=== PATIENT | male | born 1955 | race Caucasian/White ===

== ENCOUNTER → 2018-10-18 | Outpatient (CLI) | payer MEDICARE ==
[~2018-10-18] MED LIST: OXYCODONE; Z.0.CYMBALTA30 MG; Z.0.NEURONTIN300 MG; Z.0.TENORMIN50 MG
== END ==
LOC: US 11:53
PROVIDERS: ATTEND Urology
DX: N50.82 Scrotal pain (principal)

== ENCOUNTER 2019-05-13 15:44 | Inpatient (IN) | payer MEDICARE ==
[~2019-05-13] VITALS: Ht 182.9 cm; Wt 184.6 kg
[2019-05-13 16:42] LABS: BASOPHILS % 0.5 % (0.0-1.0); EOSINOPHILS # (AUTO) 0.1 (0.0-0.4); HEMATOCRIT 40.4 % (38.2-49.6); HEMOGLOBIN 12.4 g/dL (14.0-18.0); LYMPHOCYTES # (AUTO) 1.3 (1.0-3.2); LYMPHOCYTES % 21.3 % (18.0-39.1); MEAN CORPUSCULAR HEMOGLOBIN 25.8 pg (28-32); MEAN CORPUSCULAR HGB CONC 30.7 g/dL (31-35); MEAN CORPUSCULAR VOLUME 84.2 fL (81-99); MONOCYTES # (AUTO) 0.7 (0.2-0.8); MONOCYTES % 12.1 % (4.4-11.3); NEUTROPHILS # (AUTO) 3.9 (2.1-6.9); NEUTROPHILS % 64.8 % (38.7-80.0); PLATELET COUNT 156 x10e3/uL (140-360); RED CELL DISTRIBUTION WIDTH 22.3 % (11.7-14.4)
[2019-05-13 16:52] LABS: INR 1.23; PROTHROMBIN TIME 16.1 seconds (11.9-14.5)
[2019-05-13 16:53] LABS: PARTIAL THROMBOPLASTIN TIME 42.5 seconds (23.8-35.5)
[2019-05-13 16:54] LABS: BILIRUBIN,URINE MODERATE (NEGATIVE); CLARITY,URINE SL CLOUDY (CLEAR); COLOR,URINE YELLOW (YELLOW); KETONES,URINE NEGATIVE (NEGATIVE); LEUKOCYTE ESTERASE ,URINE NEGATIVE (NEGATIVE); NITRITE,URINE NEGATIVE (NEGATIVE); PROTEIN,URINE DIPSTICK 2+ (NEGATIVE)
[2019-05-13 16:58] LABS: AMORPHOUS SEDIMENT,URINE MODERATE (FEW); BACTERIA,URINE FEW /HPF
[2019-05-13 16:59] LABS: ALANINE AMINOTRANSFERASE 11 IU/L (0-55); ALBUMIN 2.8 g/dL (3.5-5.0); ALBUMIN/GLOBULIN RATIO 0.6 (0.8-2.0); ALKALINE PHOSPHATASE 247 IU/L (40-150); ANION GAP 12.7 mmol/L (8-16); BLOOD UREA NITROGEN 14 mg/dL (7-26); BUN/CREATININE RATIO 13 (6-25); CARBON DIOXIDE 31 mmol/L (22-29); CHLORIDE 97 mmol/L (98-107); CREATINE KINASE 56 IU/L (30-200); CREATININE, SERUM 1.05 mg/dL (0.72-1.25); EST GLOMERULAR FILTRATION RATE > 60 ML/MIN (60-); GLUCOSE 99 mg/dL (74-118); POTASSIUM 3.7 mmol/L (3.5-5.1); SODIUM 137 mmol/L (136-145)
--- NOTE | 2019-05-13 18:04 | Diagnostic Imaging Report ---
EXAM: CHEST SINGLE (PORTABLE) DATE: 05/13/2019 4:16 PM INDICATION: Chest pain COMPARISON: None IMPRESSION: There are diffusely increased bilateral interstitial and airspace opacities as well as prominence of central pulmonary vascular which can be seen in the setting of edema. There is no evidence for large focal consolidation, pneumothorax, or significant pleural effusion. The cardiomediastinal silhouette appears magnified by technique but otherwise unremarkable. No acute osseous abnormality is identified. Signed by: Dr. Antolin Rivera MD on 05/13/2019 6:01 PM
[2019-05-13] MEDS ORDERED: ALBUTEROL SULF 0.083% NEB SOLN 3 ML NEB NEB STA (18:42)
[2019-05-13] MEDS ORDERED: METHYLPREDNISOLONE SOD SUCC 125 MG/2ML VIAL IV STA (18:42)
[2019-05-13] MEDS ORDERED: IPRATROPIUM BROMIDE 0.02% 2.5 ML NEB NEB STA (18:42)
[2019-05-13] MEDS ORDERED: SODIUM CHLORIDE 0.9% 1000ML 1,000 ML IV STA (18:42)
[2019-05-13] MEDS ORDERED: FUROSEMIDE INJ 10 MG/ML 4 ML VIAL IV NR (18:45)
[2019-05-13] MEDS ORDERED: LEVOFLOXACIN 500MG/D5W 100ML 100 ML IV ONE ×2 (18:45→22:07)
[2019-05-13] MEDS ORDERED: IPRATROPIUM BROMIDE 0.02% 2.5 ML NEB NEB PRN (19:00)
[2019-05-13] MEDS ORDERED: SODIUM CHLORIDE FLUSH 10 ML SYR INJ PRN (19:00)
[2019-05-13] MEDS ORDERED: FAMOTIDINE 20 MG/2 ML VIAL IV NR (19:00)
[2019-05-13] MEDS ORDERED: DEXTROSE 50% SYRINGE 50 ML IV PRN (19:00)
[2019-05-13] MEDS ORDERED: ALBUTEROL SULF 0.083% NEB SOLN 3 ML NEB NEB PRN (19:00)
[2019-05-13 19:15] LABS: MAGNESIUM 1.7 MG/DL (1.3-2.1)
[2019-05-13] MEDS ORDERED: POTASSIUM CHLORIDE 20 MEQ TAB CR PO NR (19:30)
--- NOTE | 2019-05-13 20:01 | Diagnostic Imaging Report ---
EXAM: ABDOMEN-5 views DATE: 05/13/2019 7:08 PM INDICATION: Pain. Kidney stone. COMPARISON: None FINDINGS: LINES/TUBES: Dorsal column neurostimulator device partially visualized. Battery pack projected on the right hemipelvis. BOWEL PATTERN: No evidence for obstruction. SOFT TISSUES: No abnormal calcifications. No mass effect. LUNG BASES: Bibasilar atelectasis. BONES: No acute findings. IMPRESSION: Nonobstructive bowel gas pattern. Signed by: Dr. Karlie Kessler M.D. on 05/13/2019 7:58 PM
[2019-05-13] MEDS: INSULIN REGULAR, HUMAN 100 UNIT/1 ML 3ML VIAL SQ SCH (21:00)
--- NOTE | 2019-05-13 21:30 | NUR ---
RT AT BS TO ADMINISTER HHN [place]
[2019-05-13] MEDS ORDERED: SODIUM CHLORIDE 0.9% 1000ML 1,000 ML ONE (22:07)
[2019-05-13] MEDS ORDERED: METHYLPREDNISOLONE SOD SUCC 125 MG/2ML VIAL ONE (22:07)
[2019-05-13] MEDS: METHYLPREDNISOLONE SOD SUCC 40 MG/ML VIAL 1ML IV SCH (22:48)
[2019-05-13] MEDS ORDERED: FUROSEMIDE INJ 10 MG/ML 4 ML VIAL IV ONE (23:45)
--- NOTE | 2019-05-13 23:47 | NUR ---
RT CALLED FOR BIPAP
[2019-05-13] MEDS ORDERED: FUROSEMIDE INJ 10 MG/ML 4 ML VIAL ONE (23:50)
--- NOTE | 2019-05-14 | NUR ---
PT REFUSED BIPAP.
[2019-05-14] MEDS: NICOTINE 21 MG/EA PATCH TOP SCH ×2 (00:01→21:00)
[2019-05-14] MEDS: METHYLPREDNISOLONE SOD SUCC 40 MG/ML VIAL 1ML IV SCH ×3 (06:00→20:59)
[2019-05-14 06:27] LABS: BASOPHILS % 0.2 % (0.0-1.0); HEMATOCRIT 40.2 % (38.2-49.6); HEMOGLOBIN 12.7 g/dL (14.0-18.0); LYMPHOCYTES # (AUTO) 0.4 (1.0-3.2); LYMPHOCYTES % 9.7 % (18.0-39.1); MEAN CORPUSCULAR HEMOGLOBIN 26.5 pg (28-32); MEAN CORPUSCULAR HGB CONC 31.6 g/dL (31-35); MEAN CORPUSCULAR VOLUME 83.8 fL (81-99); MONOCYTES # (AUTO) 0.1 (0.2-0.8); MONOCYTES % 1.6 % (4.4-11.3); NEUTROPHILS # (AUTO) 3.9 (2.1-6.9); NEUTROPHILS % 88.1 % (38.7-80.0); PLATELET COUNT 164 x10e3/uL (140-360); RED CELL DISTRIBUTION WIDTH 22.1 % (11.7-14.4)
[2019-05-14 07:10] LABS: ALANINE AMINOTRANSFERASE 13 IU/L (0-55); ALBUMIN 2.9 g/dL (3.5-5.0); ALBUMIN/GLOBULIN RATIO 0.6 (0.8-2.0); ALKALINE PHOSPHATASE 247 IU/L (40-150); ANION GAP 15.6 mmol/L (8-16); BLOOD UREA NITROGEN 16 mg/dL (7-26); BUN/CREATININE RATIO 16 (6-25); CARBON DIOXIDE 29 mmol/L (22-29); CHLORIDE 95 mmol/L (98-107); CREATININE, SERUM 0.98 mg/dL (0.72-1.25); EST GLOMERULAR FILTRATION RATE > 60 ML/MIN (60-); GLUCOSE 126 mg/dL (74-118); POTASSIUM 3.6 mmol/L (3.5-5.1); SODIUM 136 mmol/L (136-145)
[2019-05-14] MEDS: INSULIN REGULAR, HUMAN 100 UNIT/1 ML 3ML VIAL SQ SCH ×4 (07:15→22:17)
--- NOTE | 2019-05-14 07:22 | NUR ---
assumed care of pt
[2019-05-14 07:37] LABS: CREATINE KINASE MB 2.2 ng/mL (0-5.0)
--- NOTE | 2019-05-14 08:46 | Diagnostic Imaging Report ---
Chest, 1 view, 05/14/2019. History: Shortness of breath. Comparison: 05/13/2019. Findings: The cardiomediastinal silhouette and pulmonary vasculature are prominent. There are diffuse bilateral pulmonary opacities, slightly increased compared to prior exam. There are no acute osseous or soft tissue abnormalities. Thoracic stimulator leads are again noted. Impression: Findings suggestive of CHF, slightly worsened. Signed by: Kush Vanegas on 05/14/2019 8:43 AM
[2019-05-14] MEDS ORDERED: FUROSEMIDE INJ 10 MG/ML 4 ML VIAL IV SCH ×2 (09:00→14:00)
[2019-05-14] MEDS: POTASSIUM CHLORIDE 20 MEQ TAB CR PO SCH ×2 (09:03→17:24)
[2019-05-14] MEDS: FUROSEMIDE INJ 10 MG/ML 4 ML VIAL IV SCH ×3 (09:05→21:00)
[2019-05-14] MEDS: FAMOTIDINE 20 MG/2 ML VIAL IV SCH ×2 (09:07→17:23)
--- NOTE | 2019-05-14 09:15 | NUR ---
pt is refusing to wear oxygen or bipap at this time. pt understands that he needs to wear it but refuses to keep it on, is at bedside and they are both aware that he needs to wear it.
--- NOTE | 2019-05-14 11:00 | Consultation ---
DATE OF CONSULTATION: 05/14/2019 Cardiology Consultation CONSULTING PHYSICIAN: Dheeraj Whyte MD, Interventional Cardiology. REASON FOR CONSULTATION: Worsening edema and shortness of breath. HISTORY OF PRESENT ILLNESS: Mr. Phoenix is 63-year-old man with history of morbid obesity, chronic lymphedema, smoker and COPD, and chronic diastolic heart failure, hypertension, and dyslipidemia, who presents with at least one week worth of gradually worsening lower extremity edema with inability to fully flex his knees as a result and gradually progressive worsening shortness of breath. He denies any chest discomfort. He feels better after initiation of diuretics in the hospital. He was not taking diuretics prior to hospital admission according to his account. REVIEW OF SYSTEMS: A 12-system review is negative except for as noted above. PAST MEDICAL HISTORY: As per HPI. SOCIAL HISTORY: Active smoking. Denies alcohol or drugs. FAMILY HISTORY: Noncontributory. PHYSICAL EXAMINATION: VITAL SIGNS: Temperature 97.2, heart rate 73, respiratory rate 15, blood pressure 131/65, and O2 saturation 96% on nasal cannula. GENERAL: In no acute distress, alert. NECK: JVD, distended. CHEST: Decreased breath sounds in bilateral bases. CARDIOVASCULAR: Regular rate and rhythm. Normal S1, S2. No S3 or S4. ABDOMEN: Morbidly obese with some edema, pitting. Bowel sounds positive. EXTREMITIES: With 3+ edema. Hyperkeratotic and hyperpigmented thickening of lower extremities. LABORATORY DATA: Chest x-ray with pulmonary vasculature and cardiac silhouette, and associated pulmonary infiltrates concerning for pulmonary edema. Sodium 136, potassium 3.6, chloride 95, bicarbonate 29, BUN 16, creatinine 0.98, glucose 126. White blood cells 4.4, hemoglobin 12.7, and platelets 164. INR 1.2. AST 22, ALT 13, alkaline phosphatase 247. BNP 1014. Troponin I serial x2 negative. ASSESSMENT AND PLAN: 1. A 63-year-old man presents with clcwb-oj-kmblvhp diastolic heart failure. 2. History of chronic obstructive pulmonary disease and smoking. 3. Hypertension. 4. Dyslipidemia. 5. Chronic lymphedema. 6. Morbid obesity with BMI of 47.4. RECOMMENDATIONS: 1. Continue IV diuretics, furosemide 40 mg IV every 8 hours with potassium supplementation as needed. 2. Monitor blood pressure for now, seems adequately controlled, currently. 3. Obtain echocardiogram. Thank you for the opportunity to participate in the care of Mr. Phoenix. We will follow with you. Smoking cessation counseling provided. MD PATRICIA Jhaveri/MODL /[id number]
--- NOTE | 2019-05-14 14:46 | NUR ---
Report to DAVID Seth
--- NOTE | 2019-05-14 14:49 | NUR ---
report received from kenneth in er awaiting for pt to arrive to floor
[2019-05-14 15:02] LABS: CREATINE KINASE MB 1.4 ng/mL (0-5.0)
--- NOTE | 2019-05-14 15:05 | NUR ---
received pt to floor aa0x3 at bedside pt is in no pain pt is on 3l sat 94% wheezing noted without auscultation no sob noted pt has severe edema to body noted on abd and lower legs (looks like lymphadema) severe dry skin with old scabs open to air pt has a left fa 20 sl bipap prn at bedside will continue to monitor pt closely side railsx2, bed wheels locked call light is within easy reach, instructed to call for assistance if needed
[2019-05-14 15:14] VITALS: BP 163/82
[2019-05-14] MEDS ORDERED: INFLUENZA VIRUS VAC SPLIT INJ 0.5 ML SYR IM SCH (15:24)
[2019-05-14] MEDS ORDERED: PNEUMOCOCCAL VACCINE POLYVALENT 23 MCG/0.5 ML VIAL IM SCH (15:24)
[2019-05-14 15:25] VITALS: BP 163/82
[2019-05-14 17:02] VITALS: BP 163/82
[2019-05-14] MEDS: ENOXAPARIN SOD INJ 40 MG/0.4 ML SYR SC SCH (17:24)
[2019-05-14 20:00] VITALS: BP 162/73
--- NOTE | 2019-05-14 20:00 | NUR ---
RECEIVED REPORT FROM AM NURSE, PATIENT IN THE RESTROOM AT THIS TIME.
--- NOTE | 2019-05-14 20:30 | NUR ---
PATIENT RESTING ON THE SIDE OF THE BED, NO DISTRESS NOTED. 02 PER NC IS OFF, INSTRUCTED PATIENT TO KEEP O2 ON WILL CONTINUE TO MONITOR. CALL LIGHT IN REACH.
[2019-05-14] MEDS ORDERED: METHYLPREDNISOLONE SOD SUCC 40 MG/ML VIAL 1ML IV SCH (22:00)
[2019-05-15] VITALS (9 sets, daily range): BP systolic 117–171; BP diastolic 59–78
--- NOTE | 2019-05-15 | NUR ---
CONTINUE RESTING, CALL LIGHT IN REACH.
[2019-05-15] MEDS: METHYLPREDNISOLONE SOD SUCC 40 MG/ML VIAL 1ML IV SCH ×2 (02:45→16:51)
--- NOTE | 2019-05-15 04:00 | NUR ---
DR. Reese BRASHER VISITED AND NEW ORDERS NOTED.
[2019-05-15] MEDS: FUROSEMIDE INJ 10 MG/ML 4 ML VIAL IV SCH ×3 (06:21→21:50)
--- NOTE | 2019-05-15 07:00 | NUR ---
received am report and rounds done. pt is alert sitting on the side of the bed, no s/s of distress. cane within reach, call light within reach and instructed pt to call RN for help
[2019-05-15] MEDS: INSULIN REGULAR, HUMAN 100 UNIT/1 ML 3ML VIAL SQ SCH ×4 (07:30→21:44)
[2019-05-15] MEDS: POTASSIUM CHLORIDE 20 MEQ TAB CR PO SCH ×2 (09:51→16:51)
[2019-05-15] MEDS: FAMOTIDINE 20 MG TAB PO SCH ×2 (09:51→16:51)
[2019-05-15 10:13] LABS: ANION GAP 14.8 mmol/L (8-16); BLOOD UREA NITROGEN 22 mg/dL (7-26); BUN/CREATININE RATIO 21 (6-25); CALCIUM 9.3 mg/dL (8.4-10.2); CARBON DIOXIDE 31 mmol/L (22-29); CHLORIDE 94 mmol/L (98-107); CREATININE, SERUM 1.07 mg/dL (0.72-1.25); EST GLOMERULAR FILTRATION RATE > 60 ML/MIN (60-); GLUCOSE 143 mg/dL (74-118); POTASSIUM 3.8 mmol/L (3.5-5.1); SODIUM 136 mmol/L (136-145)
--- NOTE | 2019-05-15 15:18 | Diagnostic Imaging Report ---
EXAM: US ABDOMEN COMPLETE DATE: 05/15/2019 7:00 AM INDICATION: Elevated liver enzymes COMPARISON: None TECHNIQUE: Transverse and longitudinal herr scale and color doppler sonographic images of the upper abdomen were obtained. FINDINGS: Technically challenging exam due to patient body habitus and extensive bowel gas. LIVER 22.7 cm in the right midclavicular line. Normal echogenicity of the liver with normal contour, no masses. SPLEEN 12.1 cm in maximum diameter. Normal echogenicity, no masses. GALLBLADDER Not visualized due to extensive bowel gas. BILE DUCTS No intrahepatic biliary ductal dilation. Common bile duct measures 4 mm. PANCREAS: Visualized portions are normal. RIGHT KIDNEY: 10.3 cm Echogenicity: Normal Collecting System: No hydronephrosis Stones: None Cyst/Mass: None LEFT KIDNEY: Not visualized due to extensive bowel gas. VESSELS: Aorta: Visualized portions are within normal size limits Inferior Vena Cava: Visualized portions are normal Main Portal Vein: 1.2 cm, normal size with hepatopetal flow. FREE FLUID: None IMPRESSION: Hepatomegaly. Challenging study due to patient body habitus and extensive bowel gas. Gallbladder, left kidney, and pancreas not well-visualized. Signed by: Amina Trejo MD on 05/15/2019 3:14 PM
[2019-05-15] MEDS ORDERED: DOXAZOSIN MESYLA2 MG PO (16:19)
[2019-05-15] MEDS ORDERED: PAROXETINE HCL20 MG PO (16:19)
[2019-05-15] MEDS ORDERED: PERCOCET 10-321 EACH PO (16:19)
[2019-05-15] MEDS ORDERED: ATENOLOL-CHLOR1 EAC1 PO (16:19)
[2019-05-15] MEDS: ENOXAPARIN SOD INJ 40 MG/0.4 ML SYR SC SCH (16:52)
[2019-05-15] MEDS: NICOTINE 21 MG/EA PATCH TOP SCH (16:52)
[2019-05-15] MEDS: ASPIRIN 81 MG CHEW TAB PO SCH (18:43)
--- NOTE | 2019-05-15 19:26 | NUR ---
RECEIVED REPORT FROM 7AM NURSE, PATIENT RESTING ON THE SIDE OF THE BED TALKING ON THE PHONE, CALL LIGHT IN REACH WILL CONTINUE TO MONITOR.
--- NOTE | 2019-05-15 21:39 | Progress Note ---
DATE: 05/15/2019 Cardiology Progress Note. SUBJECTIVE: Edema much better. Shortness of breath much improved. Continues to diurese. No new complaints. OBJECTIVE: VITAL SIGNS: Temperature 96.2, heart rate 54, respiratory rate 18, blood pressure 145/68, O2 saturation 92% on room air. GENERAL: In no acute distress. NECK: No JVD. CHEST: Clear to auscultation. CARDIOVASCULAR: Regular rate and rhythm. Normal S1, S2. Distant heart sounds. ABDOMEN: Morbidly obese, soft. EXTREMITIES: With chronic lymphedema. Hyperkeratotic changes, 2+ edema improving. CARDIOVASCULAR MEDICATION: Reviewed Lovenox 40 mg subcu daily, nicotine 21 mg daily, methylprednisolone 40 mg b.i.d. IV, KCl 20 mEq b.i.d., furosemide 40 mg IV every 8 hours. STUDIES: Reviewed glucose 141, creatinine 1.07, sodium 136, potassium 3.8 chloride 94, bicarbonate 31, BUN 22. Telemetry sinus rhythm. ASSESSMENT AND PLAN: 1. A 63-year-old man presents with acute on chronic diastolic heart failure, has history of COPD and active smoking. 2. Hypertension. 3. Dyslipidemia. 4. Chronic lymphedema. 5. Extreme morbid obesity with BMI of 47.4. RECOMMENDATIONS: 1. Continue diuretics IV and replete electrolytes as needed. Consider transition to oral diuretics tomorrow. 2. Preserved left ventricular systolic function noted on echocardiogram. 3. Venous ultrasound very limited given body habitus and edema with lymphedema changes, however no visualized deep vein thrombosis has chronic superficial thrombosis of right GSV. We will add aspirin to current regimen. Dheeraj Whyte MD AFV/MODL /[id number]
[2019-05-16] VITALS: BP 129/59
--- NOTE | 2019-05-16 | NUR ---
RESTING ON THE SIDE OF THE BED, NO DISTRESS NOTED, DRESSING REMAIN INTACT TO LOWER EXTREMITIES, BUT IS NONCOMPLIANT WITH SCD. INSTRUCTED ON THE USE FOR THE SCD'S PATIENT IS AWARE, WILL CONTINUE TO MONITOR.
--- NOTE | 2019-05-16 01:00 | NUR ---
PATIENT IS LYING DOWN IN BED, SCD'S APPLIED, NO COMPLAINS VOICED.
[2019-05-16 04:00] VITALS: BP 136/75
--- NOTE | 2019-05-16 05:00 | NUR ---
PATIENT CAME WALKING TO THE NURSES'S STATION WITH THE USE OF HIS WALKING CANE, REQUESTED FOR COFFEE, WENT BACK INTO HIS ROOM RESTING ON THE SIDE OF THE BED. SCD'S APPLIED, REMAIN ON TELEMETRY, 02 PER NC PLACED ON. WILL CONTINUE TO MONITOR.
[2019-05-16 06:33] LABS: ANION GAP 15.9 mmol/L (8-16); BLOOD UREA NITROGEN 32 mg/dL (7-26); BUN/CREATININE RATIO 27 (6-25); CALCIUM 9.4 mg/dL (8.4-10.2); CARBON DIOXIDE 32 mmol/L (22-29); CHLORIDE 96 mmol/L (98-107); CREATININE, SERUM 1.18 mg/dL (0.72-1.25); EST GLOMERULAR FILTRATION RATE > 60 ML/MIN (60-); GLUCOSE 123 mg/dL (74-118); POTASSIUM 3.9 mmol/L (3.5-5.1); SODIUM 140 mmol/L (136-145)
[2019-05-16] MEDS: FUROSEMIDE INJ 10 MG/ML 4 ML VIAL IV SCH (06:47)
--- NOTE | 2019-05-16 06:48 | NUR ---
PATIENT RESTING IN THE BED WITH HOB SLIGHTLY ELEVATED 02 PER NC REMAIN INTACT, DRESSING REMAIN INTACT, SCD REMAIN ON, REMAIN ON TELEMETRY, CALL LIGHT REMAIN IN REACH. WILL CONTINUE TO MONITOR.
--- NOTE | 2019-05-16 07:15 | NUR ---
REPORT GIVEN TO AM NURSE.
--- NOTE | 2019-05-16 07:28 | NUR ---
Received patient, a/ox3, rounds completed, no distress, continues on oxygen, some SOB, minimal pain but well managed, call light within reach. DPM consult and unclear if seen but will follow, no c/o pains at this time
[2019-05-16] MEDS: INSULIN REGULAR, HUMAN 100 UNIT/1 ML 3ML VIAL SQ SCH ×2 (07:30→11:30)
[2019-05-16] MEDS: FAMOTIDINE 20 MG TAB PO SCH (07:30)
[2019-05-16 08:14] VITALS: BP 182/84
[2019-05-16] MEDS: METHYLPREDNISOLONE SOD SUCC 40 MG/ML VIAL 1ML IV SCH (08:39)
[2019-05-16] MEDS: ASPIRIN 81 MG CHEW TAB PO SCH (08:39)
[2019-05-16] MEDS: POTASSIUM CHLORIDE 20 MEQ TAB CR PO SCH (08:40)
[2019-05-16] MEDS ORDERED: CARVEDILOL 3.125 MG TAB PO SCH (09:00)
--- NOTE | 2019-05-16 09:34 | NUR ---
Rounds by Dr. Galvan and cleared patient for discharge.
--- NOTE | 2019-05-16 09:40 | NUR ---
spoke to Dr. Quintanilla about O2 and home health, states not necessary, Eufemia HERNANDEZ states O2 on RA was ok this AM.
[2019-05-16 10:13] VITALS: BP 164/80
[2019-05-16] MEDS ORDERED: LASIX40 MG PO (11:26)
[2019-05-16] MEDS ORDERED: ALDACTONE25 MG PO (11:27)
[2019-05-16] MEDS ORDERED: COREG3.125 MG PO (11:28)
[2019-05-16] MEDS ORDERED: POTASSIUM CHLO20 ME2 PO (11:29)
--- NOTE | 2019-05-16 11:30 | NUR ---
IMM explained to patient, patient signed, copy to patient, copy to chart
[2019-05-16 11:44] VITALS: BP 186/88
[2019-05-16] MEDS ORDERED: PNEUMOCOCCAL VACCINE POLYVALENT 23 MCG/0.5 ML VIAL IM SCH (12:00)
[2019-05-16] MEDS ORDERED: INFLUENZA VIRUS VAC SPLIT INJ 0.5 ML SYR IM SCH (12:00)
--- NOTE | 2019-05-16 12:33 | Progress Note ---
DATE: 05/16/2019 Cardiology Progress Note SUBJECTIVE: No complaints. OBJECTIVE: VITAL SIGNS: Temperature 96.3, heart rate 66, respiratory rate 19, blood pressure 164/80, and O2 saturation 93% on room air. GENERAL: In no acute distress, alert. NECK: No JVD. CHEST: Clear to auscultation. ABDOMEN: Morbidly obese. Soft, nontender. CARDIOVASCULAR: Regular rate and rhythm. Normal S1, S2. Distant heart sounds. EXTREMITIES: With chronic lymphedema skin changes, edema better. CARDIOVASCULAR MEDICATIONS: Reviewed. Carvedilol 3.125 mg b.i.d., aspirin 81 mg daily, potassium chloride 20 mEq b.i.d., furosemide 40 mg IV every 8 hours, nicotine 21 mg daily. STUDIES: Reviewed. Sodium 140, potassium 3.9, chloride 96, bicarbonate 32, BUN 32, creatinine 1.1, glucose 123, calcium 9.4. On telemetry, sinus rhythm. ASSESSMENT AND PLAN: 1. A 63-year-old man presents with nrxmp-bs-pjnjeyq diastolic heart failure. 2. Chronic obstructive pulmonary disease. 3. Smoker. 4. Hypertension. 5. Dyslipidemia. 6. Chronic lymphedema. 7. Extreme morbid obesity with BMI of 47. RECOMMEND: 1. Transition IV to p.o. diuretics today. 2. The patient seems intravascular depleted by labs and has noticed significant improvement in symptoms. 3. He would benefit from weight loss, which has been advised. 4. Continue rest of cardiovascular medications. 5. Outpatient followup advised in 2 to 4 weeks post discharge. MD PATRICIA Jhaveri/BAYRON /[id number]
--- NOTE | 2019-05-16 12:40 | NUR ---
DISCHARGE SUMMARY PROVIDED, PRESCRIPTIONS PROVIDED, NO DISTRESS, O2SAT 94 ON RA, FLU AND PNA VACCINES GIVEN, IV LINE REMOVED, PATIENT A/OX4 AND STABLE
--- OUTSIDE RECORDS SUMMARY | 2019-05-16 13:39 | XMS REPORT ---
Author Author [facility] Address Unknown Phone Unavailable Care Team Providers Care Food And Beverage Assistant Name Role Phone DIANE TERRELL Unavailable Unavailable Problems This patient has no known problems. Allergies, Adverse Reactions, Alerts This patient has no known allergies or adverse reactions. Medications This patient has no known medications. Results Test Description Test Time Test Comments Text Results Atomic Results Result Comments US ABDOMEN COMPLETE 2019-05-15 15:11:00 [place] [id number] Patient Name: PAULA GALLAGHER MR #: [id number] : 1955 Age/Sex: 63/M Req #: [id number] [facility] Physician: DIANE TERRELL MD Ordered by: MEGAN BRASHER MD Report #: [id number] Location: MED/SURG Room/Bed: [facility]– [place] Procedure: [id number] US/US ABDOMEN COMPLETE Exam Date: 05/15/19 Exam Time: 1400 REPORT STATUS: Signed EXAM: US ABDOMEN COMPLETE DATE: 05/15/2019 7:00 AM INDICATION: Elevated liver enzymes COMPARISON: None TECHNIQUE: Transverse and longitudinal herr scale and color doppler sonographic images of the upper abdomen were obtained. FINDINGS: Technically challenging exam due to patient body habitus and extensive bowel gas. LIVER 22.7 cm in the right midclavicular line. Normal echogenicity of the liver with normal contour, no masses. SPLEEN 12.1 cm in maximum diameter. Normal echogenicity, no masses. GALLBLADDER Not visualized due to extensive bowel gas. BILE DUCTS No intrahepatic biliary ductal dilation. Common bile duct measures 4 mm. PANCREAS: Visualized portions are normal. RIGHT KIDNEY: 10.3 cm Echogenicity: Normal Collecting System: No hydronephrosis Stones: None Cyst/Mass: None LEFT KIDNEY: Not visualized due to extensive bowel gas. VESSELS: Aorta: Visualized portions are within normal size limits Inferior Vena Cava: Visualized portions are normal Main Portal Vein: 1.2 cm, normal size with hepatopetal flow. FREE FLUID: None IMPRESSION: Hepatomegaly. Challenging study due to patient body habitus and extensive bowel gas. Gallbladder, left kidney, and pancreas not well-visualized. Signed by: Jhony Peraza MD on 05/15/2019 3:14 PM Dictated By: JHONY PERAZA MD 13 Transcribed By: ALEKSEY on 05/15/191513 COPY TO: MEGAN BRASHER MD CHEST SINGLE (PORTABLE) 2019-05-14 08:41:00 [place] [address] Patient Name: PAULA GALLAGHER MR #: [id number] : 1955 Age/Sex: 63/M Req #: [id number] Adm Physician: DIANE TERRELL MD Ordered by: SHANE GUPTA MD, MD Report #: [id number] Location: [facility] Room/Bed: [place] [address] Procedure: [id number] DX/CHEST SINGLE (PORTABLE) Exam Date: 05/14/19 Exam Time: 0610 REPORT STATUS: Signed Chest, 1 view, 05/14/2019. History: Shortness of breath. Comparison: 05/13/2019. Findings: The cardiomediastinal silhouette and pulmonary vasculature are prominent. There are diffuse bilateral pulmonary opacities, slightly increased compared to prior exam. There are no acute osseous or soft tissue abnormalities. Thoracic stimulator leads are again noted. Impression: Findings suggestive of CHF, slightly worsened. Signed by: Paula Vanegas on 05/14/2019 8:43 AM Dictated By: PAULA VANEGAS MD 2 Transcribed By: ALEKSEY on 05/14/19842 COPY TO: SHANE GUPTA ABDOMEN-1VIEW (KUB) 2019-05-13 19:56:00 [place] [address] Patient Name: PAULA GALLAGHER MR #: [id number] : 1955 Age/Sex: 63/M Req #: [id number] Adm Physician: Ordered by: SHANE GUPTA MD, MD Report #: [id number] Location: ER Room/Bed: Procedure: [id number] DX/ABDOMEN-1VIEW (KUB) Exam Date: 05/13/19 Exam Time: 1910 REPORT STATUS: Signed EXAM: ABDOMEN-5 views DATE: 05/13/2019 7:08 PM INDICATION: Pain. Kidney stone. COMPARISON: None FINDINGS: LINES/TUBES: Dorsal column neurostimulator device partially visualized. Battery pack projected on the right hemipelvis. BOWEL PATTERN: No evidence for obstruction. SOFT TISSUES: No abnormal calcifications. No mass effect. LUNG BASES: Bibasilar atelectasis. BONES: No acute findings. IMPRESSION: Nonobstructive bowel gas pattern. Signed by: Dr. Karlie Delgado M.D. on 05/13/2019 7:58 PM Dictated By: EMERITA DELGADO MD, MD 57 Transcribed By: ALEKSEY on 05/13/191957 COPY TO: SHANE GUPTA CHEST SINGLE (PORTABLE) 2019-05-13 18:00:00 [place] [address] Patient Name: PAULA GALLAGHER MR #: [id number] : 1955 Age/Sex: 63/M Req #: [id number] Adm Physician: Ordered by: SHANE GUPTA MD, MD Report #: [id number] Location: ER Room/Bed: Procedure: [id number] DX/CHEST SINGLE (PORTABLE) Exam Date: Exam Time: REPORT STATUS: Signed EXAM: CHEST SINGLE (PORTABLE) DATE: 05/13/2019 4:16 PM INDICATION: Chest pain COMPARISON: None IMPRESSION: There are diffusely increased bilateral interstitial and airspace opacities as well as prominence of central pulmonary vascular which can be seen in the setting of edema. There is no evidence for large focal consolidation, pneumothorax, or significant pleural effusion. The cardiomediastinal silhouette appears magnified by technique but otherwise unremarkable. No acute osseous abnormality is identified. Signed by: Dr. Antolin Rivera MD on 05/13/2019 6:01 PM Dictated By: ANTOLIN RIVERA MD 00 Transcribed By: ALEKSEY on 05/13/191800 COPY TO: SHANE GUPTA
--- OUTSIDE RECORDS SUMMARY | 2019-05-16 13:39 | XMS REPORT | Encounter Summary ---
Author Organization Unknown Address [address] [place] [id number] Phone [phone] Care Team Providers Care Reliability Specialist Name Role Phone Dr. Sukh Mays 3 [phone] David Martinez MD 3 [phone] Guevara Lanier DO 113 [phone] [facility] 124 [phone] Reason for Visit Type 2 diabetes mellitus; Hypertensive disorder; diabetic foot exam Instructions 1. Hypertensive disorder atenolol 50 mg-chlorthalidone 25 mg tablet 2. Type 2 diabetes mellitus HbA1c (hemoglobin A1c), blood CMP, serum or plasma lipid panel, serum 3. Lymphedema of lower extremity 4. Morbid obesity Discussion Note await lab,may need to reconsider metformin/statin Patient educational handouts: No information available. Plan of Care Patient Instructions continue all meds /<wgt/>exercise ,d/c smoking,f/u vein clinic Reminders Provider Appointments None recorded. Lab HbA1C (Hemoglobin a1C), Blood 01/06/2019 [facility] CMP, Serum or Plasma 01/06/2019 [facility] Lipid Panel, Serum 01/06/2019 [facility] Referral None recorded. Procedures None recorded. Surgeries None recorded. Imaging None recorded. Medications Name Start Date atenolol 50 mg-chlorthalidone 25 mg tablet TAKE 1 TABLET BY MOUTH ONCE A DAY DUE doxazosin 4 mg tablet Take 1 tablet by oral route for 30 days. oxycodone-acetaminophen 10 mg-325 mg tablet paroxetine 30 mg tablet Take 1 tablet every day by oral route. Medications Administered None recorded. Vitals Height Weight BMI Blood Pressure 6 ft 399.4 lbs 54.2 kg/m2 140/72 mm[Hg] Lab Results None recorded. Allergies Code Code System Name Reaction Severity Status Onset NKDA Problems Name Status Onset Date Source Nicotine Dependence Active 01/24/2016 Depressive Disorder Active 08/02/2016 Type 2 Diabetes Mellitus Active 05/29/2018 Morbid Obesity Active 05/29/2018 Opioid Dependence Active 05/29/2018 Peripheral Vascular Disease Active 05/29/2018 Chronic Obstructive Lung Disease Active 05/29/2018 Anxiety Active Hypertensive Disorder Active Procedures Date Name Performed by 10/08/2009 Colonoscopy with Biopsy Information not available 05/28/1998 Neurosurgery (Brain) Information not available 05/28/1986 Laminotomy Single Lumbar Information not available Vaccine List Vaccine Type influenza, injectable, quadrivalent 03/04/2015 05/17/2016 influenza, injectable, quadrivalent, preservative free 05/24/20180.5 mL influenza, seasonal, injectable 05/17/20160.5 mL Tdap 01/24/20160.5 mL Social History Tobacco Smoking Status Heavy Tobacco Smoker (1 1/2 PPD) Past Encounters 01/06/2019 Hypertensive Disorder; Type 2 Diabetes Mellitus; Lymphedema of Lower Extremity; Morbid Obesity Sukh Mays MD: [id number] [place] [address], Ph. History of Present Illness Note:f/u htn-compliant with meds not exercise diet,continues to smoke 1.5 ppd< div> dm-no current tx,refused metformin/statin rx<div>under care vein clinic -vv's/lymphedema</div></div><div> dispatch supervisor -bl fore leg lesions</div> Review of Systems:ROS as noted in the HPI Review of Systems None recorded. Physical Exam Cardiology Exam Reported By: Patient Constitutional: General Appearance: well-developed, appears stated age, obese. Level of Distress: comfortable Psychiatric: Mental Status: alert, normal affect. Orientation: oriented to time, place, and person. Insight: good judgment Eyes: Lids and Conjunctivae: non-injected, anicteric, no discharge, no pallor, no arcus senilis, no xanthelasma. Pupils: PERRLA Neck: Neck: supple, trachea midline, no masses, FROM. Carotid Arteries: bilateral normal upstroke, no bruits, no thrills. Cervical Lymph Nodes: non tender, not enlarged. Thyroid: not enlarged, non tender, no nodules Lungs: Respiratory Effort: unlabored. Chest Exam: normal curvature, no thoracic deformity, no chest wall tenderness. Percussion: resonant. Auscultation: clear, no wheezing, no rales, no rhonchi Cardiovascular: Precordial Exam: non displaced focal PMI, no heaves, no precordial thrills. Rate And Rhythm: regular. Heart Sounds: normal S1, physiologically split S2, no rub, no gallop, no click. Systolic Murmur: not heard. Diastolic Murmur: not heard. Extremities: no cyanosis, no peripheral signs of emboli, ankle edema bilateral, , +, 2 bilateral, , +, 2 bilateral, , +, 2 bilateral, , +, 2 Skin: Inspection and Palpation: warm and dry, rash; bl fore leg lesions. Nails: no clubbing
--- OUTSIDE RECORDS SUMMARY | 2019-05-16 13:40 | XMS REPORT | Encounter Summary ---
Author Organization Unknown Address [address] [place] [address] Phone [phone] Care Team Providers Care Director University Name Role Phone Dr. Sukh Mays 3 [phone] David Martinez MD 3 [phone] Guevara Lanier DO 113 [phone] [facility] 124 [phone] Reason for Visit lab follow-up Instructions 1. Body mass index 40+ - severely obese body mass index: care instructions learning about healthy weight 2. Severe obesity 3. Type 2 diabetes mellitus metformin 500 mg tablet 4. Hypocalcemia PTH (parathyroid hormone), intact, serum or plasma CMP, serum or plasma vitamin D, 25-hydroxy, total, serum Discussion Note await lab r/o hypoparathyroidism/consider start statin next ov Plan of Care Patient Instructions start metformin 500 mgs bid/rtc 1 month Reminders Provider Appointments Return to Office on or around 02/10/2019 Sukh Mays MD Lab PTH (Parathyroid Hormone), Intact, Serum or Plasma 01/10/2019 [facility] CMP, Serum or Plasma 01/10/2019 [facility] Vitamin D, 25-Hydroxy, Total, Serum 01/10/2019 [facility] Referral None recorded. Procedures None recorded. Surgeries None recorded. Imaging None recorded. Medications Name Start Date atenolol 50 mg-chlorthalidone 25 mg tablet TAKE 1 TABLET BY MOUTH ONCE A DAY DUE doxazosin 4 mg tablet Take 1 tablet by oral route for 30 days. metformin 500 mg tablet Take 1 tablet twice a day by oral route. oxycodone-acetaminophen 10 mg-325 mg tablet paroxetine 30 mg tablet Take 1 tablet every day by oral route. Medications Administered None recorded. Vitals Height Weight BMI Blood Pressure 6 ft 402 lbs 54.5 kg/m2 (1) 196/92 mm[Hg] (2) 190/90 mm[Hg] Lab Results Date Name Specimen Result Interpretation Description Value Range Status Address 01/06/2019 CMP, Serum or Plasma Alt 20 U/L 0-55 U/L Final [facility]: [address], [place] Ast 24 U/L 5-34 U/L [facility]: [address] [place] Bun 14.1 mg/dL 8.4-25.0 mg/dL [facility]: [address], [place] High Alk Phos 228 unit/L 40-150 unit/L [facility]: [address] [place] High Glucose 117 mg/dL 70-99 mg/dL [facility]: [address], [place] Low Albumin 3.2 g/dL 3.4-5.1 g/dL [facility]: [address] [place] Creatinine 0.99 mg/dL 0.72-1.25 mg/dL [facility]: [address] [place] [address] eGFR Non- >60 mL/min/1.73m2 [facility] [address] [facility] Total Bilirubin 1.2 mg/dL 0.2-1.2 mg/dL [facility] [address] [facility] eGFR - >60 mL/min/1.73m2 [facility]: [address], [place] Sodium 139 mEq/L 135-145 mEq/L [facility]: [address] [facility], [place] Potassium 3.6 mEq/L 3.5-5.1 mEq/L [facility]: [address], [place] Chloride 99 mmol/L 98-110 mmol/L [facility] [address] [facility] Total Protein 7.5 g/dL 6.1-8.2 g/dL [facility]: [address], [place] Low Calcium 8.8 mg/dL 9.0-10.2 mg/dL [facility]: [address], [place] Co2 28.5 mmol/L 20.0-32.0 mmol/L [facility]: [address] [place] [address], [place] Anion Gap 12 calc Final [facility]: [address] [place] [address], [place] 01/06/2019 Lipid Panel, Serum Low Hdl 30 mg/dL Final [facility]: [address] [place] [address], [place] Triglyceride 102 mg/dL 0-150 mg/dL [facility]: [address] VLDL (Calculated) 20 mg/dL [facility]: [address] cholesterol/HDL Ratio 3.4 mg/dL [facility]: [address] [place] [address], [place] non-HDL Cholesterol (Calculated) 73 mg/dL 0-160 mg/dL [facility]: [address] [place] [address], [place] Cholesterol 103 mg/dL 0-200 mg/dL [facility]: [address] LDL (Calculated) 53 mg/dL 0-130 mg/dL [facility]: [address] [place] [address], [place] 01/06/2019 HbA1C (Hemoglobin a1C), Blood High A1C W/eag 6.9 % 1.0-5.7 % [facility]: [address] Average Blood Glucose 151 mg/dL [facility]: [address] [place] [address], [place] Allergies Code Code System Name Reaction Severity [...] Tobacco Smoking Status Heavy Tobacco Smoker (1 2 PPD) Past Encounters 01/10/2019 Body Mass Index 40+ - Severely Obese; Severe Obesity; Type 2 Diabetes Mellitus; Hypocalcemia Sukh Mays MD: [address] [place] [address], Ph. 01/06/2019 Hypertensive Disorder; Type 2 Diabetes Mellitus; Lymphedema of Lower Extremity; Morbid Obesity Sukh Mays MD: [address] [place] [address], Ph. History of Present Illness Note:f/u lab -significantly diabetic range hba1c 6.6/<ca 8.8/>alk phos 228 Review of Systems:ROS as noted in the [...]
--- NOTE | 2019-05-16 13:54 | Discharge Summary ---
CONSULTANTS: 1. Dr. Juan Manuel Edward. 2. Dr. Louis. 3. Dr. Dheeraj Whyte. FINAL DIAGNOSES: 1. [id number]-[id number] diastolic dysfunction, congestive heart failure, severely, much improved. 2. Severe bilateral lower extremity lymphedema, much improved. 3. Baseline abdominal ascites, most likely secondary to liver cirrhosis, but unable to diagnose due to the patient's BMI of [address] scan and also abdominal ultrasound is difficult due to body habitus. SUMMARY: The patient is a 63-year-old male, who came in with severely edematous lower extremity lymphedema. The patient is noncompliant. He had lymphedema clinic visit multiple months ago and did not follow up. He was also increasing shortness of breath, required oxygen support. The patient was with acute hypoxia. He had baseline BMI of 55. The patient is morbidly obese. He is ambulatory with a cane. He received aggressive diuresis, which he improved significantly. His echocardiogram showed ejection fraction is grossly normal. The patient also has severely unkempt lower extremity with skin building up with lymphedema. Discussed with the patient at length regarding care of the lower extremity. The patient will discharge home. He will discontinue his atenolol and HCTZ. Continue with his other home medication including pain management. New prescription is Lasix 40 mg twice a day, Aldactone 25 mg twice a day, Coreg 3.125 mg twice a day, and potassium 10 mEq daily. The patient needs to follow up with his family physician for repeat lab workup. The patient needs to go to the lymphedema clinic for treatment. Of note, grossly the lower extremity venous ultrasound did not reveal any DVT. The patient is ambulatory. His lower extremity is significantly improved. Pain has improved as well. The patient is going home today. All instructions given to the patient. MD GI Green/MODL /[id number]
[2019-05-16] MEDS ORDERED: TRIAMCINOLONE ACET 0.1% CREAM 15 GM TUBE TOP SCH (17:00)
--- NOTE | 2019-05-16 17:04 | Consultation ---
DATE OF CONSULTATION: 05/15/2019 Wound Consultation HISTORY OF PRESENT ILLNESS: A 63-year-old male patient, morbidly obese with chronic smoking, has chronic lymphedema to both lower extremities, admitted with weakness, bleeding from the leg after scratching both lower extremities. Wound consult was called. The patient started to have worsening edema and also shortness of breath. PAST MEDICAL HISTORY: Hyperlipidemia, hypertension, chronic lymphedema, COPD, morbid obesity, nicotine dependency. PERSONAL HISTORY: Smokes from childhood. Continues to smoke. PHYSICAL EXAMINATION: VITAL SIGNS: Blood pressure 130/65, pulse of 70. HEENT: Normal. NECK: No JVD. LUNGS: Bilateral air entry diminished. CVS: Normal. ABDOMEN: Protuberant. Abdominal wall edema present. EXTREMITIES: Lower extremities 3+ edema present, lymphedema, lymphocele with hyperkeratotic skin and chronic stasis pigmentation noted in both the lower extremities with excoriation and scratch martin. ASSESSMENT: Chronic bilateral lymphedema, morbid obesity, chronic obstructive pulmonary disease. PLAN: Discussed with patient at length about losing weight, smoking cessation counseling, have lymphedema pump at home. Explained to him about the medical condition that he has, which he is not aware and unable to understand the seriousness of the smoking and the disease that he has. Talked to him at length to be serious about his health. Otherwise, he would end up in custodial soon. MD EVERARDO Leahy/BAYRON /[id number]
== END 2019-05-16 12:25 | disposition home or self-care (01) | DRG 292 ==
LOC: ER 15:44 → ERHOLD 20:24 → MED/SURG 05-14 15:08
PROVIDERS: ADMIT Internal Medicine; ATTEND Internal Medicine
DX: I11.0 Hypertensive heart disease with heart failure (principal); R18.8 Other ascites; J44.1 Chronic obstructive pulmonary disease with (acute) exacerbation; Z68.42 Body mass index [BMI] 45.0-49.9, adult; I50.33 Acute on chronic diastolic (congestive) heart failure; E78.5 Hyperlipidemia, unspecified; I89.0 Lymphedema, not elsewhere classified; K74.60 Unspecified cirrhosis of liver; E66.01 Morbid (severe) obesity due to excess calories; F17.200 Nicotine dependence, unspecified, uncomplicated; I89.8 Other specified noninfective disorders of lymphatic vessels and lymph nodes; L81.4 Other melanin hyperpigmentation; M19.90 Unspecified osteoarthritis, unspecified site; R09.02 Hypoxemia
CPT/HCPCS: 36415; 71045; 74018; 76700; 80048; 80053; 81001; 82140; 82550; 82553; 82948; 83690; 83735; 83880; 84484; 85025; 85610; 85730; 87086; 90732; 93005; 93306; 93970; 94644; 94660; 96372; 99285; J1650; J1817; J1940; J1956; J2920; J2930; J7030

== ENCOUNTER 2020-09-22 22:23 | Inpatient (IN) | payer MEDICARE ==
[~2020-09-22] VITALS: Ht 365.8 cm; Wt 169.6 kg
[~2020-09-22 22:23] MED LIST changes: +ALDACTONE25 MG PO; +ATENOLOL-CHLOR1 EAC1 PO; +COREG3.125 MG PO; +DOXAZOSIN MESYLA2 MG PO; +LASIX40 MG PO; +PAROXETINE HCL20 MG PO; +PERCOCET 10-321 EACH PO; +POTASSIUM CHLO20 ME2 PO
[2020-09-22 23:18] LABS: BASOPHILS % 0.5 % (0.0-1.0); EOSINOPHILS # (AUTO) 0.2 (0.0-0.4); EOSINOPHILS % 2.2 % (0.0-6.0); HEMATOCRIT 48.1 % (38.2-49.6); HEMOGLOBIN 15.6 g/dL (14.0-18.0); LYMPHOCYTES # (AUTO) 1.5 (1.0-3.2); LYMPHOCYTES % 17.4 % (18.0-39.1); MEAN CORPUSCULAR HEMOGLOBIN 30.2 pg (28-32); MEAN CORPUSCULAR HGB CONC 32.4 g/dL (31-35); MEAN CORPUSCULAR VOLUME 93.2 fL (81-99); MONOCYTES # (AUTO) 0.4 (0.2-0.8); MONOCYTES % 5.1 % (4.4-11.3); NEUTROPHILS # (AUTO) 6.5 (2.1-6.9); NEUTROPHILS % 74.5 % (38.7-80.0); PLATELET COUNT 179 x10e3/uL (140-360); RED BLOOD COUNT 5.16 x10e6/uL (4.3-5.7); RED CELL DISTRIBUTION WIDTH 15.9 % (11.7-14.4)
[2020-09-22 23:29] LABS: INR 0.82; PROTHROMBIN TIME 11.9 seconds (11.9-14.5)
[2020-09-22 23:30] LABS: PARTIAL THROMBOPLASTIN TIME 32.6 seconds (23.8-35.5)
[2020-09-22 23:37] LABS: ALBUMIN 3.6 g/dL (3.5-5.0); ALBUMIN/GLOBULIN RATIO 0.8 (0.8-2.0); ANION GAP 17.4 mmol/L (8-16); CALCIUM 9.2 mg/dL (8.4-10.2); CREATININE, SERUM 1.56 mg/dL (0.72-1.25); POTASSIUM 4.4 mmol/L (3.5-5.1)
[2020-09-22 23:50] LABS: CLARITY,URINE TURBID (CLEAR); COLOR,URINE RED (YELLOW)
[2020-09-22 23:51] LABS: KETONES,URINE NEGATIVE (NEGATIVE); LEUKOCYTE ESTERASE ,URINE NEGATIVE (NEGATIVE); NITRITE,URINE NEGATIVE (NEGATIVE); PROTEIN,URINE DIPSTICK 1+ (NEGATIVE); URINE UROBILINOGEN 0.2 mg/dL (0.2 - 1)
[2020-09-22 23:55] LABS: BACTERIA,URINE MODERATE /HPF; EPITHELIAL CELLS,URINE RARE /LPF; RBC,URINE >50 /HPF (0-5); YEAST,URINE FEW
[2020-09-23] VITALS (8 sets, daily range): BP systolic 116–144; BP diastolic 46–86
[2020-09-23] MEDS ORDERED: IOPAMIDOL 370 MG/ML 200 ML INFUS..BTL INJ ONE (00:09)
[2020-09-23] MEDS ORDERED: SODIUM CHLORIDE 0.9% 250ML 250 ML ONE (00:10)
[2020-09-23] MEDS ORDERED: SODIUM CHLORIDE 0.9% 500ML 500 ML IV ONE (00:15)
[2020-09-23] MEDS ORDERED: SODIUM CHLORIDE 0.9% 250ML 500 ML ONE (00:20)
[2020-09-23] MEDS ORDERED: CEFTRIAXONE SOD 1 GM/50 ML BAG IV SCH (02:45)
[2020-09-23] MEDS ORDERED: SODIUM CHLORIDE FLUSH 10 ML SYR INJ PRN (03:00)
[2020-09-23] MEDS ORDERED: CEFTRIAXONE SOD 1 GM in SODIUM CHLORIDE 0.9% 50ML 50 ML IV SCH (03:00)
[2020-09-23] MEDS ORDERED: DEXTROSE 50% SYRINGE 50 ML IV PRN (03:00)
[2020-09-23] MEDS: MORPHINE SULFATE INJ 4 MG/ML INJ 1ML IV PRN ×4 (05:44→21:03)
[2020-09-23] MEDS: ONDANSETRON HCL INJ 2MG/ML 2ML 2 MG/ML VIAL IV PRN ×2 (05:44→21:03)
[2020-09-23] MEDS: INSULIN REGULAR, HUMAN 100 UNIT/1 ML 3ML VIAL SQ SCH ×4 (07:30→21:00)
[2020-09-23] MEDS ORDERED: HYDRALAZINE HCL 20 MG/ML VIAL IV PRN (09:15)
[2020-09-23] MEDS ORDERED: SODIUM CHLORIDE 0.45% 1,000 ML IV SCH (09:15)
[2020-09-23] MEDS ORDERED: ACETAMINOPHEN 325 MG TAB PO PRN (09:15)
[2020-09-23] MEDS ORDERED: MAGNESIUM HYDROXIDE 30 ML UDC PO PRN (09:15)
[2020-09-23] MEDS ORDERED: FLUCONAZOLE 100 MG TAB PO ONE (10:00)
[2020-09-23] MEDS: CEFTRIAXONE SOD 1 GM in SODIUM CHLORIDE 0.9% 50ML 50 ML IV SCH ×2 (10:20→21:02)
[2020-09-23] MEDS: NICOTINE 21 MG/EA PATCH TOP SCH (10:57)
[2020-09-23] MEDS: SODIUM BICARBONATE 8.4% 50 ML in SODIUM CHLORIDE 0.45% 1,000 ML IV SCH (12:32)
[2020-09-23] MEDS: CARVEDILOL 3.125 MG TAB PO SCH (16:18)
[2020-09-24] VITALS (8 sets, daily range): BP systolic 121–144; BP diastolic 65–84
[2020-09-24] MEDS: SODIUM BICARBONATE 8.4% 50 ML in SODIUM CHLORIDE 0.45% 1,000 ML IV SCH ×2 (01:00→14:03)
[2020-09-24] MEDS: ONDANSETRON HCL INJ 2MG/ML 2ML 2 MG/ML VIAL IV PRN (01:19)
[2020-09-24] MEDS: MORPHINE SULFATE INJ 4 MG/ML INJ 1ML IV PRN ×2 (01:27→06:00)
[2020-09-24 05:49] LABS: BASOPHILS % 0.3 % (0.0-1.0); EOSINOPHILS # (AUTO) 0.2 (0.0-0.4); EOSINOPHILS % 2.6 % (0.0-6.0); HEMOGLOBIN 14.7 g/dL (14.0-18.0); LYMPHOCYTES % 26.6 % (18.0-39.1); MEAN CORPUSCULAR HEMOGLOBIN 29.9 pg (28-32); MEAN CORPUSCULAR VOLUME 93.5 fL (81-99); MONOCYTES # (AUTO) 0.6 (0.2-0.8); MONOCYTES % 7.8 % (4.4-11.3); NEUTROPHILS # (AUTO) 4.6 (2.1-6.9); NEUTROPHILS % 62.4 % (38.7-80.0); PLATELET COUNT 160 x10e3/uL (140-360); RED BLOOD COUNT 4.92 x10e6/uL (4.3-5.7); RED CELL DISTRIBUTION WIDTH 15.4 % (11.7-14.4)
[2020-09-24 06:13] LABS: ALANINE AMINOTRANSFERASE 16 IU/L (0-55); ALBUMIN 3.3 g/dL (3.5-5.0); ALBUMIN/GLOBULIN RATIO 0.9 (0.8-2.0); ALKALINE PHOSPHATASE 81 IU/L (40-150); ANION GAP 12.2 mmol/L (8-16); BLOOD UREA NITROGEN 25 mg/dL (7-26); BUN/CREATININE RATIO 21 (6-25); CALCIUM 8.4 mg/dL (8.4-10.2); CARBON DIOXIDE 26 mmol/L (22-29); CHLORIDE 107 mmol/L (98-107); EST GLOMERULAR FILTRATION RATE > 60 ML/MIN (60-); GLUCOSE 94 mg/dL (74-118); POTASSIUM 4.2 mmol/L (3.5-5.1); SODIUM 141 mmol/L (136-145)
[2020-09-24] MEDS: INSULIN REGULAR, HUMAN 100 UNIT/1 ML 3ML VIAL SQ SCH ×4 (07:17→20:25)
[2020-09-24] MEDS: FLUCONAZOLE 100 MG TAB PO SCH (08:51)
[2020-09-24] MEDS: CARVEDILOL 3.125 MG TAB PO SCH ×2 (08:51→16:50)
[2020-09-24] MEDS: CEFTRIAXONE SOD 1 GM in SODIUM CHLORIDE 0.9% 50ML 50 ML IV SCH ×2 (08:51→20:49)
[2020-09-24] MEDS: NICOTINE 21 MG/EA PATCH TOP SCH (08:51)
[2020-09-24] MEDS: HYDROCODONE/APAP 7.5MG-325MG 1 EA TAB PO PRN ×3 (10:32→20:30)
[2020-09-25] VITALS (8 sets, daily range): BP systolic 124–155; BP diastolic 50–73
[2020-09-25] MEDS: SODIUM BICARBONATE 8.4% 50 ML in SODIUM CHLORIDE 0.45% 1,000 ML IV SCH ×2 (05:00→22:02)
[2020-09-25] MEDS: HYDROCODONE/APAP 7.5MG-325MG 1 EA TAB PO PRN ×5 (05:10→22:02)
[2020-09-25] MEDS: INSULIN REGULAR, HUMAN 100 UNIT/1 ML 3ML VIAL SQ SCH ×4 (07:30→19:51)
[2020-09-25] MEDS: CEFTRIAXONE SOD 1 GM in SODIUM CHLORIDE 0.9% 50ML 50 ML IV SCH ×2 (08:05→20:48)
[2020-09-25] MEDS: NICOTINE 21 MG/EA PATCH TOP SCH (08:08)
[2020-09-25] MEDS: FLUCONAZOLE 100 MG TAB PO SCH (08:08)
[2020-09-25] MEDS: CARVEDILOL 3.125 MG TAB PO SCH ×2 (08:10→17:00)
[2020-09-25] MEDS ORDERED: PROPOFOL IV EMULSION 10 MG/ML 20 ML VIAL ONE (19:20)
[2020-09-25] MEDS ORDERED: LIDOCAINE HCL 2% LOCAL INJ 5 ML SDV VIAL INJ ONE (19:20)
[2020-09-25] MEDS ORDERED: SEVOFLURANE INHAL SOLN 250 ML PEN BTL ONE (19:20)
[2020-09-25] MEDS ORDERED: ONDANSETRON HCL INJ 2MG/ML 2ML 2 MG/ML VIAL ONE (19:20)
[2020-09-25] MEDS ORDERED: ROCURONIUM BROMIDE 10 MG/ML 5ML VIAL IV ONE (19:20)
[2020-09-25] MEDS ORDERED: POVIDONE IODINE 0.05% 0.05 % ML PO ONE (19:20)
[2020-09-25] MEDS ORDERED: GLYCOPYRROLATE INJ 0.2 MG/ML VIAL ONE (19:20)
[2020-09-25] MEDS ORDERED: SUCCINYLCHOLINE CHLORIDE 20 MG/ML 10ML VIAL ONE (19:20)
[2020-09-26] VITALS (8 sets, daily range): BP systolic 130–178; BP diastolic 39–86
[2020-09-26] MEDS: MORPHINE SULFATE INJ 4 MG/ML INJ 1ML IV PRN (05:36)
[2020-09-26] MEDS ORDERED: IOPAMIDOL 300MG/ML 50ML INFUS..BTL IV ONE (07:20)
[2020-09-26] MEDS ORDERED: B&O 60MG R/S 60 MG SUPP PR ONE (07:20)
[2020-09-26] MEDS: SODIUM BICARBONATE 8.4% 50 ML in SODIUM CHLORIDE 0.45% 1,000 ML IV SCH (07:30)
[2020-09-26] MEDS: INSULIN REGULAR, HUMAN 100 UNIT/1 ML 3ML VIAL SQ SCH ×4 (07:30→20:27)
[2020-09-26] MEDS: CARVEDILOL 3.125 MG TAB PO SCH ×2 (08:00→15:56)
[2020-09-26] MEDS ORDERED: SUGAMMADEX SODIUM 200 MG/2 ML VIAL IV ONE (09:14)
[2020-09-26] MEDS ORDERED: LORAZEPAM INJ 2 MG/ML VIAL ONE (10:15)
[2020-09-26] MEDS ORDERED: HYDROMORPHONE 1MG/1ML INJ ONE (10:22)
[2020-09-26] MEDS ORDERED: B&O 60MG R/S 60 MG SUPP PR PRN (10:30)
[2020-09-26] MEDS ORDERED: ACETAMINOPHEN/CODEINE 300MG - 30MG TAB PO PRN (10:30)
[2020-09-26] MEDS: FLUCONAZOLE 100 MG TAB PO SCH (10:50)
[2020-09-26] MEDS: CEFTRIAXONE SOD 1 GM in SODIUM CHLORIDE 0.9% 50ML 50 ML IV SCH ×2 (10:50→21:52)
[2020-09-26] MEDS: HYDROCODONE/APAP 7.5MG-325MG 1 EA TAB PO PRN ×3 (10:50→20:10)
[2020-09-26] MEDS: NICOTINE 21 MG/EA PATCH TOP SCH (10:50)
[2020-09-26] MEDS: PHENAZOPYRIDINE HCL 100 MG TAB PO PRN ×2 (12:58→20:30)
[2020-09-26] MEDS ORDERED: FENTANYL CITRATE/PF 100MCG/2 ML INJ ONE (17:29)
[2020-09-27] VITALS (8 sets, daily range): BP systolic 81–154; BP diastolic 40–71
[2020-09-27] MEDS: HYDROCODONE/APAP 7.5MG-325MG 1 EA TAB PO PRN ×5 (00:30→22:22)
[2020-09-27] MEDS: SODIUM BICARBONATE 8.4% 50 ML in SODIUM CHLORIDE 0.45% 1,000 ML IV SCH ×2 (00:34→11:11)
[2020-09-27] MEDS: MORPHINE SULFATE INJ 4 MG/ML INJ 1ML IV PRN ×2 (02:55→07:08)
[2020-09-27] MEDS: NICOTINE 21 MG/EA PATCH TOP SCH (06:30)
[2020-09-27 06:44] LABS: BASOPHILS % 0.3 % (0.0-1.0); EOSINOPHILS # (AUTO) 0.1 (0.0-0.4); EOSINOPHILS % 1.2 % (0.0-6.0); HEMATOCRIT 45.7 % (38.2-49.6); HEMOGLOBIN 14.5 g/dL (14.0-18.0); LYMPHOCYTES # (AUTO) 1.5 (1.0-3.2); LYMPHOCYTES % 16.4 % (18.0-39.1); MEAN CORPUSCULAR HEMOGLOBIN 29.8 pg (28-32); MEAN CORPUSCULAR HGB CONC 31.7 g/dL (31-35); MONOCYTES # (AUTO) 0.8 (0.2-0.8); MONOCYTES % 8.5 % (4.4-11.3); NEUTROPHILS # (AUTO) 6.7 (2.1-6.9); NEUTROPHILS % 73.3 % (38.7-80.0); PLATELET COUNT 147 x10e3/uL (140-360); RED BLOOD COUNT 4.86 x10e6/uL (4.3-5.7); RED CELL DISTRIBUTION WIDTH 15.1 % (11.7-14.4)
[2020-09-27 07:04] LABS: ANION GAP 15.1 mmol/L (8-16); CALCIUM 8.8 mg/dL (8.4-10.2); CREATININE, SERUM 1.23 mg/dL (0.72-1.25); INR 0.85; POTASSIUM 4.1 mmol/L (3.5-5.1); PROTHROMBIN TIME 12.2 seconds (11.9-14.5)
[2020-09-27 07:05] LABS: PARTIAL THROMBOPLASTIN TIME 34.5 seconds (23.8-35.5)
[2020-09-27] MEDS: INSULIN REGULAR, HUMAN 100 UNIT/1 ML 3ML VIAL SQ SCH ×4 (07:30→21:00)
[2020-09-27] MEDS: FLUCONAZOLE 100 MG TAB PO SCH (08:45)
[2020-09-27] MEDS: CARVEDILOL 3.125 MG TAB PO SCH ×2 (08:45→16:01)
[2020-09-27] MEDS: CEFTRIAXONE SOD 1 GM in SODIUM CHLORIDE 0.9% 50ML 50 ML IV SCH ×2 (08:45→21:28)
[2020-09-27] MEDS: PHENAZOPYRIDINE HCL 100 MG TAB PO PRN ×3 (09:25→22:22)
[2020-09-27] MEDS ORDERED: HYDRALAZINE HCL 20 MG/ML VIAL IV PRN ×2 (16:15)
[2020-09-28] VITALS (7 sets, daily range): BP systolic 127–172; BP diastolic 58–88
[2020-09-28] MEDS: SODIUM BICARBONATE 8.4% 50 ML in SODIUM CHLORIDE 0.45% 1,000 ML IV SCH ×2 (01:30→17:21)
[2020-09-28] MEDS: MORPHINE SULFATE INJ 4 MG/ML INJ 1ML IV PRN ×3 (02:52→13:06)
[2020-09-28] MEDS: ONDANSETRON HCL INJ 2MG/ML 2ML 2 MG/ML VIAL IV PRN ×2 (02:52→13:03)
[2020-09-28] MEDS: INSULIN REGULAR, HUMAN 100 UNIT/1 ML 3ML VIAL SQ SCH ×4 (07:30→21:00)
[2020-09-28] MEDS ORDERED: MAGNESIUM HYDROXIDE 30 ML UDC PO PRN (08:45)
[2020-09-28] MEDS ORDERED: IOPAMIDOL 370 MG/ML 200 ML INFUS..BTL INJ ONE (09:39)
[2020-09-28] MEDS ORDERED: SODIUM CHLORIDE 0.9% 100 ML ONE (09:39)
[2020-09-28] MEDS ORDERED: LORAZEPAM INJ 2 MG/ML VIAL IV ONE (10:00)
[2020-09-28] MEDS ORDERED: MORPHINE SULFATE INJ 4 MG/ML INJ 1ML IV ONE (10:00)
[2020-09-28] MEDS: CARVEDILOL 3.125 MG TAB PO SCH ×2 (11:03→17:01)
[2020-09-28] MEDS: SENNA-S TABLET PO SCH ×2 (11:04→17:01)
[2020-09-28] MEDS: CEFTRIAXONE SOD 1 GM in SODIUM CHLORIDE 0.9% 50ML 50 ML IV SCH ×2 (11:04→21:12)
[2020-09-28] MEDS: NICOTINE 21 MG/EA PATCH TOP SCH (11:04)
[2020-09-28] MEDS: FLUCONAZOLE 100 MG TAB PO SCH (11:04)
[2020-09-28] MEDS: HYDROCODONE/APAP 7.5MG-325MG 1 EA TAB PO PRN (17:01)
[2020-09-28] MEDS ORDERED: SODIUM CHLORIDE 0.9% 50ML 100 ML ONE (21:23)
[2020-09-28] MEDS ORDERED: CEFTRIAXONE SOD 1 GM VIAL ONE (21:24)
[2020-09-29] VITALS: BP 117/48
[2020-09-29] MEDS: HYDROCODONE/APAP 7.5MG-325MG 1 EA TAB PO PRN ×4 (00:35→13:09)
[2020-09-29 04:00] VITALS: BP 134/74
[2020-09-29] MEDS: PHENAZOPYRIDINE HCL 100 MG TAB PO PRN ×2 (04:35→13:09)
[2020-09-29] MEDS: SODIUM BICARBONATE 8.4% 50 ML in SODIUM CHLORIDE 0.45% 1,000 ML IV SCH (04:48)
[2020-09-29 05:50] LABS: BASOPHILS % 0.4 % (0.0-1.0); EOSINOPHILS # (AUTO) 0.2 (0.0-0.4); EOSINOPHILS % 2.3 % (0.0-6.0); HEMATOCRIT 44.8 % (38.2-49.6); HEMOGLOBIN 14.3 g/dL (14.0-18.0); LYMPHOCYTES # (AUTO) 2.2 (1.0-3.2); LYMPHOCYTES % 24.4 % (18.0-39.1); MEAN CORPUSCULAR HEMOGLOBIN 29.7 pg (28-32); MEAN CORPUSCULAR HGB CONC 31.9 g/dL (31-35); MEAN CORPUSCULAR VOLUME 93.1 fL (81-99); MONOCYTES # (AUTO) 0.8 (0.2-0.8); MONOCYTES % 8.4 % (4.4-11.3); NEUTROPHILS # (AUTO) 5.8 (2.1-6.9); NEUTROPHILS % 64.2 % (38.7-80.0); PLATELET COUNT 185 x10e3/uL (140-360); RED BLOOD COUNT 4.81 x10e6/uL (4.3-5.7); RED CELL DISTRIBUTION WIDTH 14.8 % (11.7-14.4)
[2020-09-29 06:11] LABS: ANION GAP 16.7 mmol/L (8-16); BLOOD UREA NITROGEN 17 mg/dL (7-26); BUN/CREATININE RATIO 14 (6-25); CALCIUM 8.8 mg/dL (8.4-10.2); CARBON DIOXIDE 26 mmol/L (22-29); CHLORIDE 103 mmol/L (98-107); CREATININE, SERUM 1.21 mg/dL (0.72-1.25); EST GLOMERULAR FILTRATION RATE > 60 ML/MIN (60-); GLUCOSE 100 mg/dL (74-118); POTASSIUM 4.7 mmol/L (3.5-5.1); SODIUM 141 mmol/L (136-145)
[2020-09-29] MEDS: INSULIN REGULAR, HUMAN 100 UNIT/1 ML 3ML VIAL SQ SCH ×3 (07:30→16:24)
[2020-09-29 08:41] VITALS: BP 153/73
[2020-09-29 08:54] VITALS: BP 153/73
[2020-09-29] MEDS: CARVEDILOL 3.125 MG TAB PO SCH ×2 (09:01→16:26)
[2020-09-29] MEDS: NICOTINE 21 MG/EA PATCH TOP SCH (09:06)
[2020-09-29] MEDS: FLUCONAZOLE 100 MG TAB PO SCH (09:07)
[2020-09-29] MEDS: SENNA-S TABLET PO SCH ×2 (09:07→17:16)
[2020-09-29] MEDS: CEFTRIAXONE SOD 1 GM in SODIUM CHLORIDE 0.9% 50ML 50 ML IV SCH (09:11)
[2020-09-29 11:48] VITALS: BP 138/56
[2020-09-29 16:00] VITALS: BP 168/73
== END 2020-09-29 18:01 | disposition home or self-care (01) | DRG 660 ==
LOC: ER 22:44 → ERHOLD 09-23 02:50 → MED/SURG 09-23 04:42
PROVIDERS: ADMIT Internal Medicine; ATTEND Internal Medicine
PROC: 0T768ZZ Dilation of Right Ureter, Via Natural or Artificial Opening Endoscopic (ICD-10-PCS; 2020-09-26)
PROC: BT141ZZ Fluoroscopy of Kidneys, Ureters and Bladder using Low Osmolar Contrast (ICD-10-PCS; 2020-09-26)
PROC: 0T9 Urinary System, Drainage (ICD-10-PCS; principal; 2020-09-26 08:30)
PROC: 0T778DZ Dilation of Left Ureter with Intraluminal Device, Via Natural or Artificial Opening Endoscopic (ICD-10-PCS; 2020-09-26 08:30)
DX: N13.6 Pyonephrosis (principal); Z68.43 Body mass index [BMI] 50.0-59.9, adult; I45.2 Bifascicular block; B37.49 Other urogenital candidiasis; J44.9 Chronic obstructive pulmonary disease, unspecified; E78.5 Hyperlipidemia, unspecified; I10 Essential (primary) hypertension; R10.9 Unspecified abdominal pain; R31.9 Hematuria, unspecified; E66.01 Morbid (severe) obesity due to excess calories; N28.89 Other specified disorders of kidney and ureter; N40.1 Benign prostatic hyperplasia with lower urinary tract symptoms; R35.1 Nocturia; R31.0 Gross hematuria; F17.200 Nicotine dependence, unspecified, uncomplicated; F32.9 Major depressive disorder, single episode, unspecified; Z20.822 Contact with and (suspected) exposure to COVID-19
CPT/HCPCS: 36415; 71046; 74174; 74178; 74420; 76770; 80048; 80053; 81001; 82948; 85025; 85610; 85730; 87086; 88112; 88305; 88342; 93005; 93306; 96361; 99251; 99284; C1769; C2617; J0330; J0696; J1170; J1817; J2001; J2060; J2270; J2405; J3010; J7050; Q9967; U0002

== ENCOUNTER 2020-10-11 11:08 | Inpatient (IN) | payer MEDICARE ==
[2020-10-07 10:56] LABS: BASOPHILS # (AUTO) 0.1 (0.0-0.1); BASOPHILS % 0.6 % (0.0-1.0); EOSINOPHILS # (AUTO) 0.2 (0.0-0.4); EOSINOPHILS % 2.6 % (0.0-6.0); HEMATOCRIT 44.2 % (38.2-49.6); HEMOGLOBIN 14.1 g/dL (14.0-18.0); LYMPHOCYTES # (AUTO) 1.6 (1.0-3.2); LYMPHOCYTES % 18.7 % (18.0-39.1); MEAN CORPUSCULAR HEMOGLOBIN 29.8 pg (28-32); MEAN CORPUSCULAR HGB CONC 31.9 g/dL (31-35); MEAN CORPUSCULAR VOLUME 93.4 fL (81-99); MONOCYTES # (AUTO) 0.7 (0.2-0.8); MONOCYTES % 7.8 % (4.4-11.3); NEUTROPHILS % 70.1 % (38.7-80.0); PLATELET COUNT 207 x10e3/uL (140-360); RED BLOOD COUNT 4.73 x10e6/uL (4.3-5.7); RED CELL DISTRIBUTION WIDTH 14.8 % (11.7-14.4)
[2020-10-07 11:19] LABS: ALBUMIN 3.5 g/dL (3.5-5.0); ALBUMIN/GLOBULIN RATIO 0.9 (0.8-2.0); ANION GAP 12.2 mmol/L (8-16); CALCIUM 9.2 mg/dL (8.4-10.2); CREATININE, SERUM 1.35 mg/dL (0.72-1.25); POTASSIUM 4.2 mmol/L (3.5-5.1)
[~2020-10-11] VITALS: Ht 365.8 cm; Wt 169.6 kg
[2020-10-11] MEDS ORDERED: CEFAZOLIN SOD 1 GM/NS 50ML 100 ML IV ONE (11:37)
[2020-10-11] MEDS ORDERED: MANNITOL 25% 12.5GM/50ML 0 ML ONE (12:08)
[2020-10-11] MEDS ORDERED: LIDOCAINE HCL 2% LOCAL INJ 5 ML SDV VIAL INJ ONE (12:54)
[2020-10-11] MEDS ORDERED: LIDOCAINE HCL 2% JELLY 5 ML TUBE ONE (12:54)
[2020-10-11] MEDS ORDERED: POVIDONE IODINE 0.05% 0.05 % ML PO ONE (12:54)
[2020-10-11] MEDS ORDERED: ONDANSETRON HCL INJ 2MG/ML 2ML 2 MG/ML VIAL ONE (12:54)
[2020-10-11] MEDS ORDERED: PROPOFOL IV EMULSION 10 MG/ML 20 ML VIAL ONE (12:54)
[2020-10-11] MEDS ORDERED: ROCURONIUM BROMIDE 10 MG/ML 5ML VIAL IV ONE (12:54)
[2020-10-11] MEDS ORDERED: DEXAMETHASONE SOD PHOS INJ 4 MG/ML VIAL ONE (12:54)
[2020-10-11] MEDS ORDERED: SEVOFLURANE INHAL SOLN 250 ML PEN BTL ONE (12:54)
[2020-10-11 15:06] LABS: BASOPHILS % 0.3 % (0.0-1.0); EOSINOPHILS # (AUTO) 0.1 (0.0-0.4); EOSINOPHILS % 0.9 % (0.0-6.0); HEMATOCRIT 34.8 % (38.2-49.6); HEMOGLOBIN 10.8 g/dL (14.0-18.0); LYMPHOCYTES # (AUTO) 1.4 (1.0-3.2); LYMPHOCYTES % 11.8 % (18.0-39.1); MEAN CORPUSCULAR HEMOGLOBIN 29.4 pg (28-32); MEAN CORPUSCULAR VOLUME 94.8 fL (81-99); MONOCYTES # (AUTO) 0.3 (0.2-0.8); MONOCYTES % 2.7 % (4.4-11.3); NEUTROPHILS # (AUTO) 9.8 (2.1-6.9); NEUTROPHILS % 83.8 % (38.7-80.0); PLATELET COUNT 180 x10e3/uL (140-360); RED BLOOD COUNT 3.67 x10e6/uL (4.3-5.7); RED CELL DISTRIBUTION WIDTH 15.1 % (11.7-14.4)
[2020-10-11] MEDS ORDERED: SUGAMMADEX SODIUM 200 MG/2 ML VIAL IV ONE ×2 (15:14→15:15)
[2020-10-11] MEDS ORDERED: ACETAMINOPHEN 1000 MG/100 ML IV PRN (16:15)
[2020-10-11] MEDS ORDERED: DIPHENHYDRAMINE HCL INJ 50 MG/ML VIAL IM PRN (16:15)
[2020-10-11] MEDS ORDERED: NALOXONE HCL INJ 0.4 MG/ML AMP IV PRN (16:15)
[2020-10-11] MEDS ORDERED: LORAZEPAM INJ 2 MG/ML VIAL ONE ×2 (16:26→16:33)
[2020-10-11] MEDS ORDERED: MORPHINE SULFATE INJ 10 MG/ML ONE ×2 (16:28→16:33)
[2020-10-11] MEDS ORDERED: HYDROMORPHONE 1MG/1ML INJ ONE (17:07)
[2020-10-11 17:17] LABS: ABG HCO3 26 mmol/L (22-26); ABG PCO2 68 mmHg (35-45); ABG PO2 50 mmHg (80-105); ABG TCO2 28
[2020-10-11 17:17] LABS: BASOPHILS # (AUTO) 0.1 (0.0-0.1); BASOPHILS % 0.4 % (0.0-1.0); EOSINOPHILS % 0.2 % (0.0-6.0); HEMATOCRIT 37.7 % (38.2-49.6); HEMOGLOBIN 11.8 g/dL (14.0-18.0); LYMPHOCYTES % 9.4 % (18.0-39.1); MEAN CORPUSCULAR HEMOGLOBIN 29.9 pg (28-32); MEAN CORPUSCULAR HGB CONC 31.3 g/dL (31-35); MEAN CORPUSCULAR VOLUME 95.7 fL (81-99); MONOCYTES # (AUTO) 0.6 (0.2-0.8); MONOCYTES % 2.8 % (4.4-11.3); NEUTROPHILS # (AUTO) 18.2 (2.1-6.9); NEUTROPHILS % 86.6 % (38.7-80.0); PLATELET COUNT 210 x10e3/uL (140-360); RED BLOOD COUNT 3.94 x10e6/uL (4.3-5.7); RED CELL DISTRIBUTION WIDTH 14.8 % (11.7-14.4)
[2020-10-11 17:33] LABS: ANION GAP 16.1 mmol/L (8-16); BLOOD UREA NITROGEN 23 mg/dL (7-26); BUN/CREATININE RATIO 19 (6-25); CALCIUM 7.7 mg/dL (8.4-10.2); CARBON DIOXIDE 20 mmol/L (22-29); CHLORIDE 108 mmol/L (98-107); CREATININE, SERUM 1.21 mg/dL (0.72-1.25); EST GLOMERULAR FILTRATION RATE > 60 ML/MIN (60-); GLUCOSE 238 mg/dL (74-118); POTASSIUM 4.1 mmol/L (3.5-5.1); SODIUM 140 mmol/L (136-145)
[2020-10-11] MEDS: MORPHINE SULFATE 1 MG/ML 30ML PCA IV PRN (17:35)
[2020-10-11] MEDS: DOCUSATE SODIUM 100 MG CAP PO SCH (18:30)
[2020-10-11] MEDS ORDERED: MIDAZOLAM HCL 2 MG/2 ML VIAL ONE (19:21)
[2020-10-11] MEDS ORDERED: KETAMINE HCL INJ 50 MG/ML 10 ML VIAL ONE (19:21)
[2020-10-11] MEDS ORDERED: FENTANYL CITRATE/PF 100MCG/2 ML INJ ONE (19:21)
[2020-10-11 20:36] VITALS: BP 145/101
[2020-10-11 20:40] VITALS: BP 145/101
[2020-10-11] MEDS: SODIUM CHLORIDE 0.9% 1000ML 1,000 ML IV SCH (20:56)
[2020-10-11] MEDS: CEFAZOLIN SOD 1 GM/NS 50ML 50 ML IV SCH (20:56)
[2020-10-11] MEDS: SODIUM CHLORIDE 0.9% 250ML IRRIG IR SCH ×2 (21:02→22:26)
[2020-10-11 21:06] VITALS: BP 145/71
[2020-10-11 21:07] VITALS: BP 145/71
[2020-10-11 22:01] VITALS: BP 157/64
[2020-10-11 23:02] VITALS: BP 152/77
[2020-10-12] VITALS (23 sets, daily range): BP systolic 88–174; BP diastolic 35–118
[2020-10-12] MEDS: SODIUM CHLORIDE 0.9% 250ML IRRIG IR SCH ×3 (03:03→10:00)
[2020-10-12] MEDS: MORPHINE SULFATE 1 MG/ML 30ML PCA IV PRN (03:49)
[2020-10-12] MEDS: CEFAZOLIN SOD 1 GM/NS 50ML 50 ML IV SCH ×3 (03:54→20:37)
[2020-10-12 04:46] LABS: BASOPHILS % 0.1 % (0.0-1.0); HEMATOCRIT 33.7 % (38.2-49.6); HEMOGLOBIN 10.7 g/dL (14.0-18.0); LYMPHOCYTES # (AUTO) 1.1 (1.0-3.2); LYMPHOCYTES % 7.9 % (18.0-39.1); MEAN CORPUSCULAR HEMOGLOBIN 29.9 pg (28-32); MEAN CORPUSCULAR HGB CONC 31.8 g/dL (31-35); MEAN CORPUSCULAR VOLUME 94.1 fL (81-99); MONOCYTES # (AUTO) 1.2 (0.2-0.8); MONOCYTES % 8.2 % (4.4-11.3); NEUTROPHILS # (AUTO) 11.7 (2.1-6.9); NEUTROPHILS % 83.4 % (38.7-80.0); PLATELET COUNT 181 x10e3/uL (140-360); RED BLOOD COUNT 3.58 x10e6/uL (4.3-5.7); RED CELL DISTRIBUTION WIDTH 14.8 % (11.7-14.4)
[2020-10-12 05:13] LABS: ANION GAP 12.8 mmol/L (8-16); BLOOD UREA NITROGEN 20 mg/dL (7-26); BUN/CREATININE RATIO 18 (6-25); CALCIUM 7.9 mg/dL (8.4-10.2); CARBON DIOXIDE 25 mmol/L (22-29); CHLORIDE 108 mmol/L (98-107); CREATININE, SERUM 1.13 mg/dL (0.72-1.25); EST GLOMERULAR FILTRATION RATE > 60 ML/MIN (60-); GLUCOSE 156 mg/dL (74-118); POTASSIUM 4.8 mmol/L (3.5-5.1); SODIUM 141 mmol/L (136-145)
[2020-10-12] MEDS: SODIUM CHLORIDE 0.9% 1000ML 1,000 ML IV SCH ×2 (06:31→12:07)
[2020-10-12] MEDS: NICOTINE 14 MG/EA PATCH TOP SCH ×2 (09:00→11:37)
[2020-10-12] MEDS: DOCUSATE SODIUM 100 MG CAP PO SCH ×2 (09:00→17:00)
[2020-10-12 09:50] LABS: ABG HCO3 28 mmol/L (22-26); ABG PCO2 58 mmHg (35-45); ABG PH 7.29 (7.35-7.45); ABG PO2 65 mmHg (80-105); ABG TCO2 30
[2020-10-12] MEDS: ALBUTEROL/IPRATROPIUM 3 ML NEB NEB SCH ×2 (13:00→19:20)
[2020-10-12] MEDS ORDERED: MORPHINE SULFATE 1 MG/ML 30ML PCA IV PRN (19:30)
[2020-10-12] MEDS: HYDROMORPHONE 1MG/1ML INJ IV PRN ×2 (19:45→23:23)
[2020-10-12] MEDS: ONDANSETRON HCL INJ 2MG/ML 2ML 2 MG/ML VIAL IV PRN (19:50)
[2020-10-13] VITALS (13 sets, daily range): BP systolic 121–172; BP diastolic 56–77
[2020-10-13] MEDS: SODIUM CHLORIDE 0.9% 1000ML 1,000 ML IV SCH ×3 (01:16→20:40)
[2020-10-13] MEDS: ALBUTEROL/IPRATROPIUM 3 ML NEB NEB SCH ×4 (01:30→19:40)
[2020-10-13] MEDS: HYDROMORPHONE 1MG/1ML INJ IV PRN ×5 (01:44→21:02)
[2020-10-13] MEDS: CEFAZOLIN SOD 1 GM/NS 50ML 50 ML IV SCH ×3 (03:42→20:40)
[2020-10-13] MEDS: ONDANSETRON HCL INJ 2MG/ML 2ML 2 MG/ML VIAL IV PRN ×3 (04:41→13:55)
[2020-10-13 04:49] LABS: BASOPHILS % 0.2 % (0.0-1.0); EOSINOPHILS % 0.1 % (0.0-6.0); HEMATOCRIT 31.8 % (38.2-49.6); HEMOGLOBIN 9.6 g/dL (14.0-18.0); LYMPHOCYTES # (AUTO) 1.3 (1.0-3.2); LYMPHOCYTES % 10.7 % (18.0-39.1); MEAN CORPUSCULAR HEMOGLOBIN 29.4 pg (28-32); MEAN CORPUSCULAR HGB CONC 30.2 g/dL (31-35); MEAN CORPUSCULAR VOLUME 97.2 fL (81-99); MONOCYTES % 8.5 % (4.4-11.3); NEUTROPHILS # (AUTO) 9.8 (2.1-6.9); PLATELET COUNT 172 x10e3/uL (140-360); RED BLOOD COUNT 3.27 x10e6/uL (4.3-5.7); RED CELL DISTRIBUTION WIDTH 15.1 % (11.7-14.4)
[2020-10-13 05:20] LABS: ANION GAP 12.3 mmol/L (8-16); CALCIUM 7.9 mg/dL (8.4-10.2); CREATININE, SERUM 1.27 mg/dL (0.72-1.25); POTASSIUM 4.3 mmol/L (3.5-5.1)
[2020-10-13] MEDS ORDERED: QUETIAPINE FUMARATE 25 MG TAB PO PRN (08:30)
[2020-10-13] MEDS: METOPROLOL TARTRATE 25 MG TAB PO SCH ×2 (08:43→16:02)
[2020-10-13] MEDS: CELECOXIB 100 MG CAP PO SCH ×2 (08:43→16:01)
[2020-10-13] MEDS: DOCUSATE SODIUM 100 MG CAP PO SCH ×2 (08:43→16:01)
[2020-10-13] MEDS: NICOTINE 14 MG/EA PATCH TOP SCH (08:44)
[2020-10-13] MEDS: LIDOCAINE 4% PATCH TP SCH (08:44)
[2020-10-13] MEDS: GABAPENTIN 100 MG CAP PO SCH ×3 (08:44→20:40)
[2020-10-13] MEDS ORDERED: ALBUTEROL/IPRATROPIUM 3 ML NEB NEB PRN (10:00)
[2020-10-13] MEDS ORDERED: HYDROMORPHONE 1MG/1ML INJ IV ONE (22:00)
[2020-10-13] MEDS ORDERED: TRIAMCINOLONE ACET 0.1% CREAM 15 GM TUBE TOP PRN (22:00)
[2020-10-14] VITALS (8 sets, daily range): BP systolic 105–138; BP diastolic 40–70
[2020-10-14] MEDS: ALBUTEROL/IPRATROPIUM 3 ML NEB NEB SCH ×4 (00:20→19:05)
[2020-10-14] MEDS: HYDROMORPHONE 1MG/1ML INJ IV PRN ×6 (01:00→19:05)
[2020-10-14] MEDS: CEFAZOLIN SOD 1 GM/NS 50ML 50 ML IV SCH ×3 (04:03→20:41)
[2020-10-14 05:06] LABS: BASOPHILS % 0.3 % (0.0-1.0); EOSINOPHILS # (AUTO) 0.1 (0.0-0.4); EOSINOPHILS % 0.7 % (0.0-6.0); HEMATOCRIT 30.4 % (38.2-49.6); HEMOGLOBIN 9.4 g/dL (14.0-18.0); LYMPHOCYTES # (AUTO) 1.6 (1.0-3.2); LYMPHOCYTES % 13.3 % (18.0-39.1); MEAN CORPUSCULAR HEMOGLOBIN 29.8 pg (28-32); MEAN CORPUSCULAR HGB CONC 30.9 g/dL (31-35); MEAN CORPUSCULAR VOLUME 96.5 fL (81-99); MONOCYTES # (AUTO) 0.9 (0.2-0.8); MONOCYTES % 7.3 % (4.4-11.3); NEUTROPHILS # (AUTO) 9.2 (2.1-6.9); NEUTROPHILS % 77.8 % (38.7-80.0); PLATELET COUNT 183 x10e3/uL (140-360); RED BLOOD COUNT 3.15 x10e6/uL (4.3-5.7); RED CELL DISTRIBUTION WIDTH 14.6 % (11.7-14.4)
[2020-10-14 05:21] LABS: ANION GAP 12.4 mmol/L (8-16); BLOOD UREA NITROGEN 15 mg/dL (7-26); BUN/CREATININE RATIO 14 (6-25); CALCIUM 8.4 mg/dL (8.4-10.2); CARBON DIOXIDE 25 mmol/L (22-29); CHLORIDE 106 mmol/L (98-107); CREATININE, SERUM 1.07 mg/dL (0.72-1.25); EST GLOMERULAR FILTRATION RATE > 60 ML/MIN (60-); GLUCOSE 97 mg/dL (74-118); POTASSIUM 4.4 mmol/L (3.5-5.1); SODIUM 139 mmol/L (136-145)
[2020-10-14] MEDS ORDERED: BISACODYL 10 MG SUPP PR PRN (07:30)
[2020-10-14] MEDS ORDERED: ACETAMINOPHEN/CODEINE 300MG - 30MG TAB PO PRN (07:30)
[2020-10-14] MEDS ORDERED: BISACODYL 10 MG SUPP PR ONE (07:58)
[2020-10-14] MEDS: METOPROLOL TARTRATE 25 MG TAB PO SCH ×2 (08:38→16:12)
[2020-10-14] MEDS: DOCUSATE SODIUM 100 MG CAP PO SCH ×2 (08:38→16:12)
[2020-10-14] MEDS: GABAPENTIN 100 MG CAP PO SCH ×4 (08:38→20:41)
[2020-10-14] MEDS: NICOTINE 14 MG/EA PATCH TOP SCH (08:38)
[2020-10-14] MEDS: CELECOXIB 100 MG CAP PO SCH ×2 (08:38→16:12)
[2020-10-14] MEDS: LIDOCAINE 4% PATCH TP SCH (08:38)
[2020-10-15 00:04] VITALS: BP 128/54
[2020-10-15] MEDS: ALBUTEROL/IPRATROPIUM 3 ML NEB NEB SCH ×2 (00:20→07:10)
[2020-10-15] MEDS ORDERED: SODIUM CHLORIDE 0.9% 1000ML 1,000 ML ONE (03:27)
[2020-10-15] MEDS: CEFAZOLIN SOD 1 GM/NS 50ML 50 ML IV SCH ×2 (04:15→11:52)
[2020-10-15 04:44] LABS: BASOPHILS % 0.5 % (0.0-1.0); EOSINOPHILS # (AUTO) 0.3 (0.0-0.4); EOSINOPHILS % 3.7 % (0.0-6.0); HEMATOCRIT 30.7 % (38.2-49.6); HEMOGLOBIN 9.5 g/dL (14.0-18.0); LYMPHOCYTES # (AUTO) 1.6 (1.0-3.2); LYMPHOCYTES % 20.6 % (18.0-39.1); MEAN CORPUSCULAR HEMOGLOBIN 29.5 pg (28-32); MEAN CORPUSCULAR HGB CONC 30.9 g/dL (31-35); MEAN CORPUSCULAR VOLUME 95.3 fL (81-99); MONOCYTES # (AUTO) 0.6 (0.2-0.8); MONOCYTES % 8.1 % (4.4-11.3); NEUTROPHILS # (AUTO) 5.3 (2.1-6.9); NEUTROPHILS % 66.8 % (38.7-80.0); PLATELET COUNT 184 x10e3/uL (140-360); RED BLOOD COUNT 3.22 x10e6/uL (4.3-5.7); RED CELL DISTRIBUTION WIDTH 14.6 % (11.7-14.4)
[2020-10-15 04:45] VITALS: BP 158/61
[2020-10-15 05:01] LABS: ANION GAP 12.2 mmol/L (8-16); BLOOD UREA NITROGEN 16 mg/dL (7-26); BUN/CREATININE RATIO 16 (6-25); CALCIUM 8.4 mg/dL (8.4-10.2); CARBON DIOXIDE 25 mmol/L (22-29); CHLORIDE 108 mmol/L (98-107); CREATININE, SERUM 1.03 mg/dL (0.72-1.25); EST GLOMERULAR FILTRATION RATE > 60 ML/MIN (60-); GLUCOSE 90 mg/dL (74-118); POTASSIUM 4.2 mmol/L (3.5-5.1); SODIUM 141 mmol/L (136-145)
[2020-10-15] MEDS ORDERED: PANTOPRAZOLE SOD 40 MG TABEC PO SCH (07:30)
[2020-10-15 08:00] VITALS: BP 136/62
[2020-10-15] MEDS: CELECOXIB 100 MG CAP PO SCH (08:00)
[2020-10-15] MEDS: HYDROMORPHONE 1MG/1ML INJ IV PRN ×2 (08:26→12:55)
[2020-10-15] MEDS: ONDANSETRON HCL INJ 2MG/ML 2ML 2 MG/ML VIAL IV PRN (08:26)
[2020-10-15] MEDS: METOPROLOL TARTRATE 25 MG TAB PO SCH (08:34)
[2020-10-15] MEDS: DOCUSATE SODIUM 100 MG CAP PO SCH (08:34)
[2020-10-15] MEDS: GABAPENTIN 100 MG CAP PO SCH (08:35)
[2020-10-15] MEDS: NICOTINE 14 MG/EA PATCH TOP SCH (08:35)
[2020-10-15 08:38] VITALS: BP 136/62
[2020-10-15] MEDS: LIDOCAINE 4% PATCH TP SCH (09:00)
[2020-10-15 12:08] VITALS: BP 122/65
== END 2020-10-15 13:56 | DRG 656 ==
LOC: OR 11:08 → PACU V 16:07 → ICU 20:10 → MED/SURG 10-13 19:48
PROVIDERS: ADMIT Internal Medicine; ATTEND Internal Medicine
PROC: 0W9B40Z Drainage of Left Pleural Cavity with Drainage Device, Percutaneous Endoscopic Approach (ICD-10-PCS; 2020-10-11)
PROC: 0TP90DZ Removal of Intraluminal Device from Ureter, Open Approach (ICD-10-PCS; 2020-10-11)
PROC: 0GB20ZZ Excision of Left Adrenal Gland, Open Approach (ICD-10-PCS; 2020-10-11)
PROC: 06B Lower Veins, Excision (ICD-10-PCS; 2020-10-11)
PROC: 0TT10ZZ Resection of Left Kidney, Open Approach (ICD-10-PCS; principal; 2020-10-11 13:00)
DX: C64.2 Malignant neoplasm of left kidney, except renal pelvis (principal); J96.21 Acute and chronic respiratory failure with hypoxia; F05 Delirium due to known physiological condition; D62 Acute posthemorrhagic anemia; I13.0 Hypertensive heart and chronic kidney disease with heart failure and stage 1 through stage 4 chronic kidney disease, or unspecified chronic kidney disease; N35.919 Unspecified urethral stricture, male, unspecified site; Z96.0 Presence of urogenital implants; J44.9 Chronic obstructive pulmonary disease, unspecified; N18.9 Chronic kidney disease, unspecified; I50.9 Heart failure, unspecified; G47.33 Obstructive sleep apnea (adult) (pediatric); E11.22 Type 2 diabetes mellitus with diabetic chronic kidney disease; I27.20 Pulmonary hypertension, unspecified
CPT/HCPCS: 36415; 36600; 71045; 71046; 80048; 80053; 82805; 82948; 83735; 84443; 85025; 86850; 86900; 86920; 88305; 88309; 88331; 94640; 94660; 97139; 99251; J0690; J1100; J1170; J1200; J2001; J2060; J2150; J2250; J2270; J2405; J3010; J7030; U0002

== ENCOUNTER 2020-10-31 18:05 | Emergency (ER) | payer MEDICARE ==
[~2020-10-31] VITALS: Ht 365.8 cm; Wt 169.6 kg
[2020-10-31] MEDS ORDERED: SODIUM CHLORIDE 0.9% 1000ML 1,000 ML IV STA (18:33)
[2020-10-31 18:46] LABS: BASOPHILS % 0.4 % (0.0-1.0); EOSINOPHILS # (AUTO) 0.3 (0.0-0.4); EOSINOPHILS % 3.4 % (0.0-6.0); HEMATOCRIT 30.6 % (38.2-49.6); HEMOGLOBIN 9.3 g/dL (14.0-18.0); LYMPHOCYTES # (AUTO) 1.7 (1.0-3.2); LYMPHOCYTES % 20.4 % (18.0-39.1); MEAN CORPUSCULAR HEMOGLOBIN 27.9 pg (28-32); MEAN CORPUSCULAR HGB CONC 30.4 g/dL (31-35); MEAN CORPUSCULAR VOLUME 91.9 fL (81-99); MONOCYTES # (AUTO) 0.7 (0.2-0.8); MONOCYTES % 8.9 % (4.4-11.3); NEUTROPHILS # (AUTO) 5.5 (2.1-6.9); NEUTROPHILS % 66.3 % (38.7-80.0); PLATELET COUNT 277 x10e3/uL (140-360); RED BLOOD COUNT 3.33 x10e6/uL (4.3-5.7); RED CELL DISTRIBUTION WIDTH 15.6 % (11.7-14.4)
[2020-10-31 19:07] LABS: ALBUMIN/GLOBULIN RATIO 0.6 (0.8-2.0); ANION GAP 17.5 mmol/L (8-16); CALCIUM 8.8 mg/dL (8.4-10.2); CREATININE, SERUM 1.8 mg/dL (0.72-1.25); POTASSIUM 4.5 mmol/L (3.5-5.1)
[2020-10-31 19:14] LABS: CREATINE KINASE MB 1.3 ng/mL (0-5.0)
[2020-10-31 19:25] LABS: CLARITY,URINE HAZY (CLEAR); COLOR,URINE YELLOW (YELLOW); KETONES,URINE NEGATIVE (NEGATIVE); LEUKOCYTE ESTERASE ,URINE NEGATIVE (NEGATIVE); NITRITE,URINE NEGATIVE (NEGATIVE); PROTEIN,URINE DIPSTICK NEGATIVE (NEGATIVE); URINE UROBILINOGEN 0.2 mg/dL (0.2 - 1)
[2020-10-31 19:28] LABS: BACTERIA,URINE FEW /HPF; EPITHELIAL CELLS,URINE FEW /LPF; RBC,URINE 0-5 /HPF (0-5); WBC,URINE (MAN) 0-5 /HPF (0-5)
[2020-10-31] MEDS ORDERED: CEFUROXIME AXETIL 250 MG TAB PO STA (20:38)
[2020-10-31] MEDS ORDERED: CEFUROXIME250 MG PO (20:50)
[2020-10-31 21:12] VITALS: BP 123/57
== END 2020-10-31 21:10 | disposition home or self-care (01) ==
LOC: ER 18:27
DX: R53.81 Other malaise (principal); I10 Essential (primary) hypertension; E11.9 Type 2 diabetes mellitus without complications; E78.5 Hyperlipidemia, unspecified; J44.9 Chronic obstructive pulmonary disease, unspecified; F32.9 Major depressive disorder, single episode, unspecified; M54.9 Dorsalgia, unspecified; G89.29 Other chronic pain; Z90.5 Acquired absence of kidney
CPT/HCPCS: 36415; 71045; 74176; 80053; 81001; 82550; 82553; 83880; 84484; 85025; 87086; 93005; 99284; J7030